=== PATIENT | female | born 1975 | race Caucasian/White ===

== ENCOUNTER 2023-05-09 09:51 | Outpatient (OUT) | payer OTHER, SELFPAY ==
--- NOTE | 2023-05-09 10:03 | MM_ITS ---
Patient: JAIME PORTILLO Exam Date: 05/09/2023 : 1975 Gender:F Ordering : DR PRISCILA PAZ M.D. Admission #: [id number] Family : Order #: [id number] CLICK HERE TO VIEW EXAM RADIOLOGY REPORT PROCEDURE: MM TOMOSYNTHESIS SCREENING BI COMPARISON: MG MAMM SCREEN 3D LUIS CAD, 03/20/2021. MG MAMM SCREEN LUIS W CAD, 03/30/2016. INDICATIONS: Screening mammogram Z12.31 Calculator Name NCI Breast Cancer Risk Assessment Tool 5 Year Breast Cancer Risk 0.90% Lifetime Breast Cancer Risk 9.30% Personal Breast Cancer No Personal Ovarian Cancer No Treatments None Family Cancers Grandmother-paternal with breast cancer at age ~63. LOCATION: [facility] BREAST COMPOSITION: Heterogeneously dense,which may obscure small masses. FINDINGS: DIAGNOSTIC CATEGORY 2--BENIGN FINDING: RIGHT BREAST: No significant suspicious finding. Stable chronic asymmetries. No significant change has occurred. LEFT BREAST: No significant suspicious finding. Stable chronic asymmetries. No significant change has occurred. RECOMMENDATIONS: ROUTINE MAMMOGRAM AND CLINICAL EVALUATION IN 12 MONTHS. PLEASE NOTE: A NORMAL MAMMOGRAM DOES NOT EXCLUDE THE POSSIBILITY OF BREAST CANCER. A CLINICALLY SUSPICIOUS PALPABLE LUMP SHOULD BE BIOPSIED. Dictated by: Yuri Pringle M.D. on 05/09/2023 at 14:16 Approved by: Yuri Pringle M.D. on 05/09/2023 at 14:20
== END 2023-05-09 09:52 | disposition home or self-care (01) ==
LOC: MAMMO 09:54
PROVIDERS: PCP Family Medicine; Visit Provider Family Medicine
DX: Z12.31 Encounter for screening mammogram for malignant neoplasm of breast (principal); Z80.3 Family history of malignant neoplasm of breast
CPT/HCPCS: 77063; 77067

== ENCOUNTER 2024-06-12 10:27 | Outpatient (OUT) | payer OTHER, SELFPAY ==
--- NOTE | 2024-06-12 | MM_ITS ---
Patient Name: JAIME PORTILLO MR#: [id number] : 1975 Exam Date: 06/12/2024 Ordering Doctor: DR PRISCILA PAZ M.D. RADIOLOGY REPORT PROCEDURE: MM SCREENING MAMMO BI COMPARISON: MM TOMOSYNTHESIS SCREENING BI, 05/09/2023. INDICATIONS: BILATERAL SCREENING MAMM Calculator Name NCI Breast Cancer Risk Assessment Tool 5 Year Breast Cancer Risk 0.90% Lifetime Breast Cancer Risk 9.20% Personal Breast Cancer No Personal Ovarian Cancer No Treatments None Family Cancers Grandmother-paternal with breast cancer at age ~63. LOCATION: [facility] BREAST COMPOSITION: The breasts are heterogeneously dense,which may obscure small masses. FINDINGS: DIAGNOSTIC CATEGORY 2--BENIGN FINDING. NO CHANGE FROM COMPARISON. Scattered benign-appearing nodules are present. Scattered benign-appearing calcifications are present. Scattered benign-appearing lymph nodes are present. RIGHT BREAST: No significant suspicious finding. LEFT BREAST: No significant suspicious finding. RECOMMENDATIONS: ROUTINE MAMMOGRAM AND CLINICAL EVALUATION IN 12 MONTHS. PLEASE NOTE: A NORMAL MAMMOGRAM DOES NOT EXCLUDE THE POSSIBILITY OF BREAST CANCER. A CLINICALLY SUSPICIOUS PALPABLE LUMP SHOULD BE BIOPSIED. Dictated by: Francisco Flanagan MD on 06/12/2024 at 12:25 Approved by: Francisco Flanagan MD on 06/12/2024 at 12:26
== END 2024-06-12 10:28 | disposition home or self-care (01) ==
LOC: MAMMO 10:29
PROVIDERS: PCP Family Medicine; Visit Provider Family Medicine
DX: Z12.31 Encounter for screening mammogram for malignant neoplasm of breast (principal); Z80.3 Family history of malignant neoplasm of breast
CPT/HCPCS: 77067

== ENCOUNTER 2025-07-16 07:57 | Outpatient (OUT) | payer OTHER, SELFPAY ==
--- OUTSIDE RECORDS SUMMARY | 2024-07-31 06:30 | XMS_ITS ---
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 Role Phone Anna Eli Primary Care Provider IngramFrancisco [phone] ALLERGIES Allergen (clinical drug ingredient) Drug/Non Drug Allergy documented on EMR Reaction Allergy Type Onset Date Status meperidine Demerol anaphylaxis Drug Allergy Acti ve acetaminophen / oxycodone Percocet hives Drug Allergy Active REASON FOR VISIT pain, sinus congestion, coughing MEDICATIONS Medication SIG (Take, Route, Fr equency, Duration) Notes Start Date End Date Status Lipitor 10 MG 1 tablet Orally Once a day one daily Active Lisinopril 5 MG 2 tablets Orally Once a day Active Amoxicillin 500 MG 1 capsule Orally ely ry 8 hrs for 10 days 07/31/2024 Active predniSONE 20 MG 2 Orally Once a day for 5 days 07/31/2024 Active SOCIAL HISTORY Tobacco Use: Social History Observation Description Date Details (start date - stop date) Never Smoker NA - NA Sex Assigned At : Social History Observation Description Sex Assigned At Unknown Tobacco Use/Smoking Question Answer Notes Are you a nonuser 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 PROBLEMS Problem Type ICD Code Onset Dates Problem Status W/U Status Risk SNOMED Code Notes Problem HTN (hypertension) (I10) Active confirmed Hypertension (78532781) Problem Hyperlipidemia (E78.5) Active confirmed Hyperlipidemia (48812768) VITAL SIGNS Heart Rate 82 /min 07/31/2024 Oximetry 98 % 07/31/2024 Blood pressure systolic 112 mm Hg 07/31/20 24 Blood pressure diastolic 76 mm Hg 024 Weight 172 lbs 07/31/2024 Height 66 in 07/31/2024 BMI 27.76 07/31/2024 Weight-kg 78.02 kg 07/31/2024 Encounters Encounter Location Date Provider Diagnosis [facility] [address] [place] [id number] 07/31/2024 Francisco Ingram Acute non-recurrent maxillary sinusitis J01.00 ASSESSMENTS Encounter Date Diagnosis Assessment Notes Treatment Notes Treatment Clinical Notes Section Notes 07/31/2024 Acute non-recurrent maxillary sinusitis (ICD-10 - J01.00) Counseled on sxs care, expected course. She will hold amoxicillin, prednisone and start them only if she is not getting better or is getting worse over the 07/31/2024 Other Discussed services at [facility]. She is considering x-ferring care here and will call to schedule wellness if she wishes to do so. PLAN OF TREATMENT Medication Medication Name Sig Start Date Stop Date Notes Amoxicillin 500 MG 1 capsule Orally ely ry 8 hrs for 10 days 07/31/2024 predniSONE 20 MG 2 Orally Once a day for 5 days 07/31/2024 Treatment Notes Assessment Notes Acute non-recurrent maxillary sinusitis Counseled on sxs care, expected course. She will hold amoxicillin, prednisone and start them only if she is not getting better or is getting worse over the WE Other Discussed services a t [facility]. She is considering x-ferring care here and will call to schedule wellness if she wishes to do so. Next Appt Details Follow Up: prn, Reason: Progress Notes * Sloane PORTILLOOB:1975 (49 yo F)Acc No.[id number]:07/31/2024 Patient: Kinsey PORTILLO Provider: Francisco Ingram MD :1975 Age:49 Y Sex:Female Date:07/31/2024 Address:[address] [place], [place] [id number] Pcp:Anna Eli Subjective: * Chief Complaints: * Pain, sinus congestion, coughing * HPI: *: Sinus congestion/pressure, occasional productive cough x 5 days. Onset c malaise, aches, teeth hurt. [place] feverish. 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 Has used Nyquil and Ibuprofen. Feels better for 4 hours c this. Can feel head pressure and ears are plugged. No other sxs. 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 Last pap smear date ? Within the last 3-4 years-Kaykay Angulo. Last mammogram date 05/2024. Abnormal pap smear around 2003 - likely ASCUS. Date of Last Period 07/23/24 very light. * OB History: Total pregnancies 2. Total living children 2. # 1: Primary . # 2: Repeat . * Surgical History: Ablation 2003 * Hospitalization/Major Diagno stic Procedure: Childbirth * Family History: Father: alive 74 yrs, diagnosed with Hyperlipidemia. Mother: alive 73 yrs, diagnosed with Hypertension, Hyperlipidemia. Paternal G F: . Paternal G M: . Maternal G F: , diagnosed with Coronary atherosclerosis. Maternal G M: . 1 brother(s) . 1 son(s) , 1 daughter(s) - healthy. . Bzuobte-B-Oid. 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 * Medications: TakingLisinopril 5 MG Tablet 2 tablets Orally Once a day Lipitor 10 MG Tablet 1 tablet Orally Once a day Medication List reviewed and reconciled with the patientTaking Lisinopril 5 MG Tablet 2 tablets Orally Once a day Taking Lipitor 10 MG Tablet 1 tablet Orally Once a day Medication List reviewed and reconciled with the patient * Allergies: Percocet: hives - AllergyDemerol: anaphylaxis - Allergyno[Allergies Verified] Objective: * Vitals: HR:82, Oxygen sat:98%, BP:112/76mm Hg, Wt:172lbs, Ht:66in, BMI:27.76, Wt-k.02 kg. * Examination: General Examination *: GENERAL APPEARANCE: alert and oriented, no acute distress, pleasant, well nourished. HEAD: atraumatic, normocephalic. EYES: extraocular movements intact, conjunctiva mildly injected. EARS: auditory canal clear, light reflex dull, tympanic membrane retracted bilaterally,. SINUSES: tender maxillary> frontal. NOSE: nares congested. ORAL CAVITY: no lesions, mucosa moist, normal dentition. THROAT: mild erythema s e xudate. NECK/THYROID: neck supple, no thyromegaly. LYMPH NODES: mild anterior cervical adenopathy. HEART: S1/S2 normal, regular rate and rhythm, no murmurs, no rubs, no gallops. LUNGS: clear to auscultation, good air movement, no respiratory distress. EXTREMITIES: no edema, capillary refill normal. Assessment: * Assessment: 1. Acute non-recurrent maxillary sinusitis - J01.00 (Primary) Plan: * Treatment: 2. Others Notes: Discussed services at [facility]. She is considering x-ferring care here and will call to schedule wellness if she wishes to do so. * Procedure Codes: * Follow Up: prn * Billing Information: * Visit Code: 90905 Level 3 New Patient Acute Care. * Procedure Codes: * Sign off status: Completed true * Provider: Francisco Ingram MD Date: 07/31/2024 History and Physical Notes * HPI (History of Present Illness) Category Sub-Category Detail Notes Category Not es * Sinus congestio n/pressure, occasional productive cough x 5 days. Onset c malaise, aches, teeth hurt. [place] feverish. 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 Has used Nyquil and Ibuprofen. Feels better for 4 hours c this. Can feel head pressure and ears are plugged. No other sxs. Examination Category Sub-Category Detail Notes Category Not es General Examination * GENERAL APPEARANCE: alert and oriented, no acute distress, pleasant, well nourished HEAD: atraumatic, normocep halic EYES: extraocular movement s intact, conjunctiva mildly injected EARS: auditory canal clear , light reflex dull, tympanic membrane retracted bilaterally, NOSE: nares congested ORAL CAVITY: no lesions, mucosa m oist, normal dentition THROAT: mild erythema s exud ate NECK/THYROID: neck supple, no thyr omegaly LYMPH NODES: mild anterior cervic al adenopathy HEART: S1/S2 normal, regula r rate and rhythm, no murmurs, no rubs, no gallops LUNGS: clear to auscultatio n, good air movement, no respiratory distress EXTREMITIES: no edema, capillary refill normal SINUSES: tender maxillary> fr ontal
--- OUTSIDE RECORDS SUMMARY | 2025-07-16 07:59 | XMS_ITS | CCD ---
Author Organization [facility] Care Team Providers Care Ell Tutor Name Role Phone DR KIMEBRLY PAZ Attending Unavailable JACKSON, DR FRANCOSI Admitting Unavailable JACKSON, DR FRANCOIS Consulting Unavailable TONY, DR YURI Cronin Consulting Unavailable JACKSON, DR FRANCOIS Admitting Unavailable JACKSON, DR FRANCOIS Consulting Unavailable JACKSON, DR FRANCOIS Attending Unavailable TONY, DR YURI Cronin Consulting Unavailable Kimberly Paz MD Primary Care Provider KELLY GOEL Attending Unavailable KELLY GOEL Attending Unavailable LESLIE SHEA Attending Unavailable KELLY GOEL Attending Unavailable Allergies Allergy Classification Reported Allergen(s) Allergy Type Date of Onset Reaction(s) Facility (20 sources) Acetaminophen / oxyCODONE Drug Allergy 04-22-2023 [facility] (20 sources) Meperidine Drug Allergy 04-22-2023 [facility] Work Phone: Medications Current Medications Medication Drug Class(es) Dates Sig (Normalized) Sig (Original) atorvastatin 10 mg oral tablet (20 sources) HMG-CoA Reductase Inhibitor Start: 12-20-2024 End: 06-17-2025 take 1 tablet by mouth in the morning atorvastatin (Lipitor) 10 MG tablet Indications: Hypercholesteremia Take 1 tablet (10 mg) by mouth in the morning. 90 tablet 1 06/17/2025 Active Start: 12-31-2023 End: 06-12-2024 take 1 tablet by mouth in the morning atorvastatin (Lipitor) 10 MG tablet Indications: Hypercholesteremia (CMS/HCC) Take 1 tablet (10 mg) by mouth in the morning. 90 tablet 1 06/12/2024 Active 12 hr buPROPion hydrochloride 90 mg / naltrexone hydrochloride 8 mg extended release oral tablet (20 sources) Opioid Antagonist, Aminoketone Start: 04-05-2025 End: 06-28-2025 take 2 tablets by mouth in the morning, then take 2 tablets by mouth at bedtime Contrave 8-90 MG ER tablet Indications: Overweight (BMI 25.0-29.9) Take 2 tablets by mouth in the morning and take 2 before bedtime 120 tablet 1 06/28/2025 Active Start: 02-09-2025 take 2 tablets by mo uth in the morning, then take 2 tablets by mouth at bedtime Contrave 8-90 MG ER tablet Indications: Overweight (BMI 25.0-29.9) Take 2 tablets by mouth in the morning and take 2 before bedtime 120 tablet 1 02/09/2025 Active Start: 07-14-2024 End: 02-09-2025 take 2 tablets by mouth in the morning naltrexone-buPROPion ER (Contrave) 8-90 MG ER tablet Indications: Overweight (BMI 25.0-29.9) Take 2 tablets by mouth in the morning and 2 tablets before bedtime. 360 tablet 1 07/14/2024 02/09/2025 Discontinued Start: 03-02-2024 End: 06-12-2024 take 2 tablets by mouth in the morning, then take 2 tablets by mouth at bedtime Contrave 8-90 MG ER tablet Indications: Mixed hyperlipidemia (CMS/HCC) , Primary hypertension (CMS/HCC) , Overweight (BMI 25.0-29.9) Take 2 tablets by mouth in the morning and take 2 before bedtime 120 tablet 03/02/2024 06/12/2024 Discontinued lisinopril 5 mg oral tablet (20 sources) Angiotensin Converting Enzyme Inhibitor Start: 12-20-2024 End: 06-17-2025 take 1 tablet by mouth in the morning lisinopril 5 MG tablet Indications: Primary hypertension Take 1 tablet (5 mg) by mouth in the morning. 90 tablet 1 06/17/2025 Active Start: 12-31-2023 End: 06-12-2024 take 1 tablet by mouth in the morning lisinopril 5 MG tablet Indications: Primary hypertension (CMS/HCC) Take 1 tablet (5 mg) by mouth in the morning. 90 tablet 1 06/12/2024 Active meloxicam 7.5 mg oral tablet (3 sources) Nonsteroidal Anti-inflammatory Drug Start: 02-25-2024 End: 02-24-2025 take 1 tablet by mouth once daily meloxicam (Mobic) 7.5 MG tablet Indications: Rib pain on right side Take 1 tablet (7.5 mg) by mouth Daily 30 tablet 02/25/2024 06/12/2024 Discontinued Naltrexone-buPRO Pion HCl (CONTRAVE PO) (2 sources) End: 07-14-2024 Naltrexone-buPROP ion HCl (CONTRAVE PO) Take by mouth 07/14/2024 Discontinued (Reorder) predniSONE 20 mg oral tablet (4 sources) Start: 06-18-2025 End: 06-23-2025 take 1 tablet by mouth in the morning predniSONE (Deltasone) 20 MG tablet Indications: Chronic midline low back pain without sciatica Take 1 tablet (20 mg) by mouth in the morning and 1 tablet (20 mg) before bedtime. Do all this for 5 days. 10 tablet 06/18/2025 06/23/2025 Active Start: 05-03-2025 End: 05-08-2025 take 1 tablet by mouth in the morning predniSONE (Deltasone) 20 MG tablet Indications: Left elbow pain Take 1 tablet (20 mg) by mouth in the morning and 1 tablet (20 mg) before bedtime. Do all this for 5 days. 10 tablet 05/03/2025 05/08/2025 Active Semaglutide-Weight Management (Wegovy) 0.25 MG/0.5ML solution auto-injector (5 sources) Start: 06-12-2024 End: 07-14-2024 inject 0.25 mg by subcutaneous injection every week Semaglutide-Weight Management (Wegovy) 0.25 MG/0.5ML solution auto-injector Indications: Primary hypertension (CMS/HCC) , Overweight (BMI 25.0-29.9) Inject 0.25 mg under the skin 1 (one) time per week 2 mL 06/12/2024 07/14/2024 Discontinued Start: 06-12-2024 End: 07-12-2024 inject 0.25 mg by subcutaneous injection every week Semaglutide-Weight Management (Wegovy) 0.25 MG/0.5ML solution auto-injector Indications: Primary hypertension (CMS/HCC) , Overweight (BMI 25.0-29.9) Inject 0.25 mg under the skin 1 (one) time per week 2 mL 06/12/2024 07/12/2024 Active Problems Active Problems Problem Classification Problem Date Documented Da te Episodic/Chronic Anxiety disorders (20 sources) Anxiety; Translations: [Anxiety disorder, unspecified] Onset: 05-09-2023 05-09-2023 Chronic Disorders of lipid metabolism (20 sources) Hypercholesterolemi a; Translations: [Pure hypercholesterolemi a, unspecified] Onset: 05-09-2023 05-09-2023 Chronic Essential hypertension (20 sources) Essential hypertension; Translations: [Essential (primary) hypertension] Onset: 11-06-2024 07-14-2024 Chronic Other non-traumatic joint disorders (2 sources) Pain in elbow; Translations: [Pain in left elbow] 05-03-2025 Episodic Other nutritional; endocrine; and metabolic disorders (8 sources) Body mass index 25-29 - overweight; Translations: [Overweight] 07-14-2024 Episodic Other skin disorders (2 sources) Sebaceous cyst of skin; Translations: [Sebaceous cyst] 05-03-2025 Episodic Spondylosis; intervertebral disc disorders; other back problems (20 sources) Bilateral inflammation of sacroiliac joint; Translations: [Sacroiliitis, not elsewhere classified] Onset: 05-09-2023 05-09-2023 Chronic Spondylosis; intervertebral disc disorders; other back problems (2 sources) Chronic low back pain; Translations: [Chronic midline low back pain without sciatica] 06-18-2025 Episodic Unclassified (2 sources) Sebaceous cyst of skin 05-03-2025 Past or Other Problems Problem Classification Problem Date Documented Da te Episodic/Chronic Adjustment disorders (20 sources) Adjustment disorder with mixed anxiety and depressed mood; Translations: [Adjustment disorder with mixed anxiety and depressed mood] Onset: 05-09-2023 Resolved: 05-14-2023 05-14-2023 Chronic Malaise and fatigue (20 sources) Fatigue; Translations: [Other fatigue] Onset: 05-09-2023 05-09-2023 Episodic Mood disorders (20 sources) Acute depression; Translations: [Acute depression] Onset: 05-09-2023 Resolved: 05-14-2023 05-14-2023 Chronic Other inflammatory condition of skin (20 sources) Perioral dermatitis; Translations: [Perioral dermatitis] Onset: 05-09-2023 Resolved: 06-12-2024 06-12-2024 Chronic Other inflammatory condition of skin (20 sources) Rosacea; Translations: [Rosacea, unspecified] Onset: 05-09-2023 Resolved: 06-12-2024 06-12-2024 Chronic Other nutritional; endocrine; and metabolic disorders (18 sources) Weight increased; Translations: [Abnormal weight gain] Onset: 05-09-2023 05-09-2023 Episodic Other nutritional; endocrine; and metabolic disorders (4 sources) Weight gain; Translations: [Abnormal weight gain] Onset: 05-09-2023 05-09-2023 Episodic Other screening for suspected conditions (not mental disorders or infectious disease) (20 sources) Other abnormal and inconclusive findings on diagnostic imaging of breast; Translations: [Mammography abnormal] Onset: 05-16-2022 Resolved: 05-14-2023 Episodic Results Test Name Value Interpretation Reference Range [facility] - Chemistry and C hemistry - challengeon 05-04-2025 Albumin [Mass/Vol] 4.7 g/dL 3.6 - 5.1 g/dL [facility] Albumin/Globulin [Mass ratio] 2.1 {ratio} [facility] ALP [Catalytic activity/Vol] 44 U/L 37 - 153 U/L [facility] ALT [Catalytic activity/Vol] 17 U/L 6 - 29 U/L [facility] AST [Catalytic activity/Vol] 17 U/L 10 - 35 U/L [facility] Bilirubin [Mass/Vol] 0.6 mg/dL 0.2 - 1.2 mg/dL [facility] Calcium [Mass/Vol] 9.5 mg/dL 8.6 - 10. 4 mg/dL [facility] Chloride [Moles/Vol] 101 mmol/L 98 - 110 mmol/L [facility] CO2 [Moles/Vol] 29 mmol/L 20 - 32 mmol/L [facility] Creatinine [Mass/Vol] 0.98 mg/dL 0.50 - 1.03 mg/dL [facility] GFR/1.73 sq M.predicted among non-blacks MDRD (S/P/Bld) [Vol rate/Area] 70 mL/min/{1.73_m2} > OR = 60 mL/min/1.73m2 [facility] Globulin (S) [Mass/Vol] 2.2 g/dL [facility] Glucose [Mass/Vol] 101 mg/dL High 65 - 99 mg/dL [facility] Comment on above: Fasting reference interval For someone without known diabetes, a glucose value between 100 and 125 mg/dL is consistent with prediabetes and should be confirmed with a follow-up test. Potassium [Moles/Vol] 4.4 mmol/L 3.5 - 5.3 mmol/L [facility] Protein [Mass/Vol] 6.9 g/dL 6.1 - 8.1 g/dL [facility] Sodium [Moles/Vol] 138 mmol/L 135 - 146 mmol/L [facility] Urea nitrogen [Mass/Vol] 13 mg/dL 7 - 25 mg/dL [facility] Urea nitrogen/Creatinine [Mass ratio] SEE NOTE: [facility] Comment on above: Not Reported: BUN an d Creatinine are within reference range. Lipid 1996 panel 5 Cholesterol [Mass/Vol] 198 mg/dL [facility] - 200 mg/dL [facility] Cholesterol in HDL [Mass/Vol] 78 mg/dL > OR = 50 [facility] Cholesterol in LDL [Mass/Vol] 104 mg/dL High mg/dL (calc) [facility] Comment on above: Reference range: <10 0 Desirable range <100 mg/dL for primary prevention; <70 mg/dL for patients with CHD or diabetic patients with > or = 2 CHD risk factors. LDL-C is now calculated using the Ángel-Alan calculation, which is a validated novel method providing better accuracy than the Friedewald equation in the estimation of LDL-C. Ángel PRADO et al. GUICHO. 2013;310(19): 6226-4744 (http://education.Euphoria App.Si TV/faq/ZIA001) Cholesterol non HDL [Mass/Vol] 120 mg/dL [facility] Comment on above: For patients with di abetes plus 1 major ASCVD risk factor, treating to a non-HDL-C goal of <100 mg/dL (LDL-C of <70 mg/dL) is considered a therapeutic option. Cholesterol.total/Ch olesterol in HDL [Mass ratio] 2.5 {ratio} [facility] Triglyceride [Mass/Vol] 71 mg/dL [facility] - 150 mg/dL [facility] [email or web address] No Panel Informationon 05-04 Interpretation and review of laboratory results Abnormal [facility] Performing Organization Information Site ID: QPT Name: [employer] [facility] Address: Ernestine Stevenson , [address] [place] [id number] Director: Stevie Melchor MD [facility] [email or web address] [facility] Spine Lumbar Complete w/F salvador AND [place] 10-10-2022 XR Spine Lumbar Complete w/Flex AND Ext FINDINGS: There are 5 lumbar vertebral bodies. There is no fracture or dislocation. There is no spondylolysis or spondylosis. There is mild disc narrowing at L5-S1. There is also mild spondylosis throughout. The visualized pelvis including the symmetric SI joints and intact sacral alar lines is unremarkable. There is a moderate amount of stool in the colon. IMPRESSION: 1. Mild spondylosis throughout the lumbar spine. 2. Mild disc narrowing at L5-S1. 3. Mild to moderate stool in the colon. Report reported and signed by Fam Prasad on 10/10/2022 1101 Normal [facility] [employer] US BREAST RIGHT LIMITEDon US BREAST RIGHT LIMITED Patient: KINSEY PORTILLO Exam Date: 05/16/2022 : 1975 Gender:F Ordering : DR KIMBERLY PAZ M.D. Admission #: [id number] Family : Order #: [id number] CLICK HERE TO VIEW EXAM RADIOLOGY REPORT PROCEDURE: ULTRASOUND BREAST RIGHT LIMITED COMPARISON: US BREAST RIGHT LIMITED, 04/03/2021. US BREAST RIGHT LIMITED, 10/25/2021. INDICATIONS: Abnormal findings on diagnostic imaging of breast TECHNIQUE: Breast ultrasound was performed, with evaluation focusing only on specific areas of concern. FINDINGS: DIAGNOSTIC CATEGORY 2--BENIGN FINDING: RIGHT BREAST: Stable 3 mm hypodense cyst versus nodule at the 9 o'clock position, 2.7 cm from the nipple. No appreciable change compared to prior 2 studies. Annual screening mammography is recommended. RECOMMENDATIONS: ROUTINE MAMMOGRAM AND CLINICAL EVALUATION IN 12 MONTHS. PLEASE NOTE: A NORMAL ULTRASOUND EXAMINATION DOES NOT EXCLUDE THE POSSIBILITY OF BREAST CANCER. A CLINICALLY SUSPICIOUS PALPABLE LUMP SHOULD BE BIOPSIED. Dictated by: Yuri Pringle M.D. on 05/16/2022 at 14:38 Approved by: Yuri Pringle M.D. on 05/16/2022 at 14:47 Normal [facility] US BREAST RIGHT LIMITEDon US BREAST RIGHT LIMITED Patient: KINSEY PORTILLO Exam Date: 10/25/2021 : 1975 Gender:F Ordering : DR KIMBERLY PAZ M.D. Admission #: [id number] Family : Order #: [id number] CLICK HERE TO VIEW EXAM RADIOLOGY REPORT PROCEDURE: ULTRASOUND BREAST RIGHT LIMITED COMPARISON: US BREAST RIGHT LIMITED, 04/03/2021. INDICATIONS: Abnormal findings on diagnostic imaging of breast TECHNIQUE: Breast ultrasound was performed, with evaluation focusing only on specific areas of concern. FINDINGS: DIAGNOSTIC CATEGORY 3--PROBABLY BENIGN FINDING. THE FOLLOWING FINDING(S) HAS A HIGH PROBABILITY OF A BENIGN ETIOLOGY: RIGHT BREAST: Stable oval 4 x 3 x 3 mm smoothly circumscribed nodule at the 9 o'clock position, 2.7 cm from the nipple. No overtly suspicious characteristics. Follow-up imaging in 6 months is recommended to document stability over a 1 year period. RECOMMENDATIONS: DIAGNOSTIC FOLLOW-UP MAMMOGRAM BILATERAL BREASTS IN 12 MONTHS. SHORT TERM FOLLOW-UP ULTRASOUND RIGHT BREAST IN 6 MONTHS. PLEASE NOTE: A NORMAL ULTRASOUND EXAMINATION DOES NOT EXCLUDE THE POSSIBILITY OF BREAST CANCER. A CLINICALLY SUSPICIOUS PALPABLE LUMP SHOULD BE BIOPSIED. Dictated by: Yuri Pringle M.D. on 10/25/2021 at 09:40 Approved by: Yuri Pringle M.D. on 10/25/2021 at 09:44 Normal [facility] Vital Signs Date Time Vital Sign Value Performing Clinician Faci lity 06-18-2025 08:140400 Body mass index (BMI) [Ratio] 27.86 kg/m2 Leslieflorentino Downshart CREDIT CONTROL ASSISTANT Work Phone: [facility] 06-18-2025 08:[id number] Body temperature 97.5 [degF] Leslieflorentino Downshart CREDIT CONTROL ASSISTANT Work Phone: [facility] 06-18-2025 08:140400 Body weight 77.11 kg Leslie Swinehart CREDIT CONTROL ASSISTANT Work Phone: [facility] 06-18-2025 08:14-0400 Diastolic blood pressure 90 mm[Hg] Leslie Gutierrezt CREDIT CONTROL ASSISTANT Work Phone: [facility] 06-18-2025 08:14-0400 Heart rate 66 /min Leslie Shea CREDIT CONTROL ASSISTANT Work Phone: [facility] 06-18-2025 08:14-0400 SaO2% (BldA) [Mass fraction] 98 % Leslie Shea CREDIT CONTROL ASSISTANT Work Phone: [facility] 06-18-2025 08:14-0400 Systolic blood pressure 138 mm[Hg] Leslie Gutierrezt CREDIT CONTROL ASSISTANT Work Phone: [facility] 05-03-2025 10:55-0400 Body mass index (BMI) [Ratio] 27.04 kg/m2 Kelly Goel CREDIT CONTROL ASSISTANT Work Phone: [facility] 05-03-2025 10:55-0400 Body weight 74.84 kg Kelly Goel CREDIT CONTROL ASSISTANT Work Phone: [facility] 05-03-2025 10:55-0400 Diastolic blood pressure 90 mm[Hg] Kelly Goel CREDIT CONTROL ASSISTANT Work Phone: [facility] 05-03-2025 10:55-0400 Heart rate 67 /min Kelly Goel CREDIT CONTROL ASSISTANT Work Phone: [facility] 05-03-2025 10:55-0400 SaO2% (BldA) [Mass fraction] 98 % Kelly Goel CREDIT CONTROL ASSISTANT Work Phone: [facility] 05-03-2025 10:55-0400 Systolic blood pressure 138 mm[Hg] Kelly Goel CREDIT CONTROL ASSISTANT Work Phone: [facility] 11-06-2024 13:59-0500 Body height 166.4 cm Kelly Geol CREDIT CONTROL ASSISTANT Work Phone: [facility] 11-06-2024 13:59-0500 Body mass index (BMI) [Ratio] 27.99 kg/m2 Kelly Goel CREDIT CONTROL ASSISTANT Work Phone: [facility] 11-06-2024 13:59-0500 Body temperature 99.5 [degF] Kelly Goel CREDIT CONTROL ASSISTANT Work Phone: [facility] 11-06-2024 13:59-0500 Body weight 77.47 kg Kelly Goel CREDIT CONTROL ASSISTANT Work Phone: [facility] 11-06-2024 13:59-0500 Diastolic blood pressure 78 mm[Hg] Kelly Goel CREDIT CONTROL ASSISTANT Work Phone: [facility] 11-06-2024 13:59-0500 Heart rate 83 /min Kelly Goel CREDIT CONTROL ASSISTANT Work Phone: [facility] 11-06-2024 13:59-0500 SaO2% (BldA) [Mass fraction] 98 % Kelly Goel CREDIT CONTROL ASSISTANT Work Phone: [facility] 11-06-2024 13:59-0500 Systolic blood pressure 120 mm[Hg] Kelly Goel CREDIT CONTROL ASSISTANT Work Phone: [facility] 07-14-2024 11:59-0400 Body height 166.4 cm Kelly Goel CREDIT CONTROL ASSISTANT Work Phone: [facility] 07-14-2024 11:59-0400 Body mass index (BMI) [Ratio] 28.25 kg/m2 Kelly Goel CREDIT CONTROL ASSISTANT Work Phone: [facility] 07-14-2024 11:59-0400 Body weight 78.2 kg Kelly Goel CREDIT CONTROL ASSISTANT Work Phone: [facility] 07-14-2024 11:59-0400 Diastolic blood pressure 80 mm[Hg] Kelly Goel CREDIT CONTROL ASSISTANT Work Phone: [facility] 07-14-2024 11:59-0400 Heart rate 73 /min Kelly Goel CREDIT CONTROL ASSISTANT Work Phone: [facility] 07-14-2024 11:59-0400 SaO2% (BldA) [Mass fraction] 96 % Kelly Goel CREDIT CONTROL ASSISTANT Work Phone: [facility] 07-14-2024 11:59-0400 Systolic blood pressure 130 mm[Hg] Kelly Goel CREDIT CONTROL ASSISTANT Work Phone: [facility] 06-12-2024 08:33-0400 Body height 166.4 cm Kelly Goel CREDIT CONTROL ASSISTANT Work Phone: [facility] 06-12-2024 08:33-0400 Body mass index (BMI) [Ratio] 28.91 kg/m2 Kelly Goel CREDIT CONTROL ASSISTANT Work Phone: [facility] 06-12-2024 08:33-0400 Body weight 80.02 kg Kelly Goel CREDIT CONTROL ASSISTANT Work Phone: [facility] 06-12-2024 08:33-0400 Diastolic blood pressure 70 mm[Hg] Kelly Goel CREDIT CONTROL ASSISTANT Work Phone: [facility] 06-12-2024 08:33-0400 Heart rate 74 /min Kelly Goel CREDIT CONTROL ASSISTANT Work Phone: [facility] 06-12-2024 08:33-0400 SaO2% (BldA) [Mass fraction] 97 % Kelly Goel CREDIT CONTROL ASSISTANT Work Phone: [facility] 06-12-2024 08:33-0400 Systolic blood pressure 124 mm[Hg] Kelly Goel CREDIT CONTROL ASSISTANT Work Phone: [facility] Healthcare Encounters Encounter Date Encounter Type Care Provider Facility Start: 06-28-2025 End: 06-28-2025 Refill Kelly Goel CREDIT CONTROL ASSISTANT Work Phone: [facility] Comment on above: Overweight (BMI 25.0 -29.9) Start: 06-18-2025 End: 06-18-2025 Bamboo flowsheet Leslie Swinehart CREDIT CONTROL ASSISTANT Work Phone: [facility] Start: 06-18-2025 End: 06-18-2025 Bamboo flowsheet Leslie Swinehart CREDIT CONTROL ASSISTANT Work Phone: [facility] Start: 06-18-2025 End: 06-18-2025 Office outpatient visit 10 minutes Leslie Gutierrezt CREDIT CONTROL ASSISTANT Work Phone: [facility] Comment on above: Chronic midline low back pain without sciatica (Primary Dx) Start: 06-18-2025 End: 06-18-2025 ambulatory LESLIE SHEA Not Available Start: 06-17-2025 End: 06-17-2025 Refill Donya Vargas MA [facility] Comment on above: Hypercholesteremia ; Primary hypertension Start: 06-15-2025 End: 06-15-2025 Telephone encounter Kimberly Paz MD Work Phone: [facility] Start: 05-03-2025 End: 05-03-2025 Bamboo flowsheet Kelly Goel CREDIT CONTROL ASSISTANT Work Phone: [facility] Start: 05-03-2025 End: 05-03-2025 Bamboo flowsheet Kelly Goel CREDIT CONTROL ASSISTANT Work Phone: [facility] Start: 05-03-2025 End: 05-03-2025 Patient encounter status Kelly Goel NP Work Phone: [facility] Healthcare Start: 05-03-2025 End: 05-03-2025 Periodic preventive med est patient 40-64yrs Kelly Goel CREDIT CONTROL ASSISTANT Work Phone: [facility] Comment on above: Encounter for [facility] ss examination (Primary Dx); Primary hypertension ; Hypercholesteremia ; Anxiety; Screening mammogram for breast cancer; Left elbow pain; Sebaceous cyst Start: 05-03-2025 End: 05-03-2025 ambulatory KELLY GOEL Not Available Start: 04-22-2025 End: 04-22-2025 Follow-up encounter Kimberly Paz MD Work Phone: [facility] Start: 03-30-2025 End: 04-12-2025 Telephone encounter Kimberly Paz MD Work Phone: [facility] Start: 02-09-2025 End: 02-09-2025 Refill Kelly Goel CREDIT CONTROL ASSISTANT Work Phone: [facility] Comment on above: Overweight (BMI 25.0 -29.9) Start: 11-06-2024 End: 11-06-2024 Bamboo flowsheet Kelly Goel CREDIT CONTROL ASSISTANT Work Phone: [facility] Start: 11-06-2024 End: 11-06-2024 Bamboo flowsheet Kelly Goel CREDIT CONTROL ASSISTANT Work Phone: [facility] Start: 11-06-2024 End: 11-06-2024 Office outpatient visit 25 minutes Kelly Goel CREDIT CONTROL ASSISTANT Work Phone: [facility] Comment on above: Fatigue, unspecified type (Primary Dx); Overweight (BMI 25.0-29.9); Primary hypertension (CMS/HCC) Start: 11-06-2024 End: 11-06-2024 ambulatory KELLY GOEL Not Available Start: 07-14-2024 End: 07-14-2024 Bamboo flowsheet Kelly Goel CREDIT CONTROL ASSISTANT Work Phone: [facility] Start: 07-14-2024 End: 07-14-2024 Bamboo flowsheet Kelly Goel CREDIT CONTROL ASSISTANT Work Phone: [facility] Start: 07-14-2024 End: 07-14-2024 Office outpatient visit 25 minutes Kelly Goel CREDIT CONTROL ASSISTANT Work Phone: [facility] Comment on above: Overweight (BMI 25.0 -29.9) (Primary Dx); Primary hypertension (CMS/HCC) Start: 07-14-2024 End: 07-14-2024 ambulatory KELLY ARAGONPJA Not Available Start: 06-12-2024 End: 06-12-2024 Bamboo flowsheet Kelly Goel CREDIT CONTROL ASSISTANT Work Phone: [facility] Start: 06-12-2024 End: 06-12-2024 Bamboo flowsheet Kelly Goel CREDIT CONTROL ASSISTANT Work Phone: [facility] Start: 06-12-2024 End: 06-12-2024 Telephone encounter Kimberly Paz MD Work Phone: [facility] Start: 06-12-2024 End: 06-12-2024 Patient encounter status Kelly Aragondanny CREDIT CONTROL ASSISTANT Work Phone: [facility] Healthcare Work Phone: Start: 06-12-2024 End: 06-12-2024 Periodic preventive med est patient 40-64yrs Kelly Aragondanny CREDIT CONTROL ASSISTANT [facility] Comment on above: Encounter for [facility] ss examination (Primary Dx); Primary hypertension (CMS/HCC); Overweight (BMI 25.0-29.9); Hypercholesteremia (CMS/HCC) Start: 05-16-2022 End: 05-17-[address] KIMBERLY PAZ Facility:[facility] Start: 10-25-2021 End: 10-26-[address] KIMBERLY PAZ Facility:[facility] Procedures Date Procedure Procedure Detail Performing Clinician Start: 05-03-2025 Comprehensive metabo lic panel Kellymikal Goel CREDIT CONTROL ASSISTANT Work Phone: Start: 05-03-2025 Lipid panel Kelly Aragonliz rosa CREDIT CONTROL ASSISTANT Work Phone: Start: 06-12-2024 Mammography Kelly Aragonliz rosa CREDIT CONTROL ASSISTANT Work Phone: Start: 05-09-2023 Mammography Kelly Aragonliz rosa CREDIT CONTROL ASSISTANT Work Phone: Plan of Treatment Date Care Activity Detail Author Start: 04-14-2028 Screening for malign ant neoplasm of colon [facility] Start: 03-29-2026 Influenza vaccination Influenza Vacc ine (#1) [facility] Comment on above: Postponed from 05/31 (Patient Refused) Start: 01-17-2026 Screening for malign ant neoplasm of cervix [facility] Start: 06-18-2025 End: 06-18-2025 Patient encounter procedure [facility] Comment on above: Arrived Start: 06-12-2025 Screening for malign ant neoplasm of breast Mammogram [facility] Start: 05-31-2025 Influenza vaccination [facility] Start: 05-03-2025 End: 07-03-2026 DBT Breast - bilateral screening Bilateral screening mammogram with tomosynthesis Imaging Routine Encounter for wellness examination Screening mammogram for breast cancer Expected: 05/03/2025, Expires: 07/03/2026 [facility] Work Phone: Comment on above: Expected: 05/03/2025 , Expires: 07/03/2026 Start: 05-03-2025 End: 05-03-2025 Patient encounter procedure [facility] Comment on above: Arrived Start: 03-30-2025 End: 03-30-2026 Noninvasive colorectal cancer DNA and occult blood screening [Presence] in Stool Cologuard colon cancer screening Lab Routine Encounter for screening for malignant neoplasm of colon Expected: 03/30/2025 (Approximate), Expires: 03/30/2026 [facility] Work Phone: Comment on above: Expected: 03/30/2025 (Approximate), Expires: 03/30/2026 Start: 11-06-2024 End: 11-06-2025 25-hydroxyvitamin D3 [Mass/volume] in Serum or Plasma Vitamin D 25 hydroxy Lab Routine Fatigue, unspecified type Expected: 11/06/2024 (Approximate), Expires: 11/06/2025 [facility] Comment on above: Expected: 11/06/2024 (Approximate), Expires: 11/06/2025 Start: 11-06-2024 End: 11-06-2025 Cobalamin (Vitamin B12) [Mass/volume] in Serum or Plasma Vitamin B12 Lab Routine Fatigue, unspecified type Expected: 11/06/2024 (Approximate), Expires: 11/06/2025 [facility] Work Phone: Comment on above: Expected: 11/06/2024 (Approximate), Expires: 11/06/2025 Start: 11-06-2024 End: 11-06-2025 Ferritin [Mass/volume] in Serum or Plasma Ferritin Lab Routine Fatigue, unspecified type Expected: 11/06/2024 (Approximate), Expires: 11/06/2025 [facility] Comment on above: Expected: 11/06/2024 (Approximate), Expires: 11/06/2025 Start: 11-06-2024 End: 11-06-2025 Iron + transferrin + TIBC Iron + transferrin + TIBC Lab Routine Fatigue, unspecified type Expected: 11/06/2024 (Approximate), Expires: 11/06/2025 [facility] Comment on above: Expected: 11/06/2024 (Approximate), Expires: 11/06/2025 Start: 11-06-2024 End: 11-06-2024 Patient encounter procedure 11/06/2024 2:00 PM EST Office Visit [facility] [address] [place] [address] [place] [phone] Kelly Goel, CREDIT CONTROL ASSISTANT [address] [place] [facility] [place] [address] Arrived [facility] Comment on above: Arrived Start: 11-06-2024 End: 11-06-2025 TSH W/REFLEX TO FT4 TSH W/REFLEX TO FT4 Lab Routine Fatigue, unspecified type Expected: 11/06/2024 (Approximate), Expires: 11/06/2025 [facility] Comment on above: Expected: 11/06/2024 (Approximate), Expires: 11/06/2025 Start: 08-07-2024 Influenza vaccination Influenza Vacc ine (#1) [facility] Comment on above: Postponed from 05/31 (Patient Refused) Start: 07-14-2024 End: 07-14-2024 Patient encounter procedure 07/14/2024 12:00 PM EDT Office Visit [facility] [address] [place] [address] [place] [phone] Kelly Goel, CREDIT CONTROL ASSISTANT [address] [place] [facility] [place] [address] Arrived [facility] Comment on above: Arrived Start: 07-07-2024 End: 07-07-2024 Patient encounter procedure 07/07/2024 3:30 PM EDT Office Visit [facility] [address] [place] [phone] Kelly Goel, CREDIT CONTROL ASSISTANT [address] [facility] [place] [address] [facility] Start: 06-12-2024 End: 06-12-2025 Comprehensive metabolic 2000 panel - Serum or Plasma Comprehensive metabolic panel Lab Routine Encounter for wellness examination Primary hypertension (CMS/HCC) Expected: 06/12/2024 (Approximate), Expires: 06/12/2025 [facility] Work Phone: Comment on above: Expected: 06/12/2024 (Approximate), Expires: 06/12/2025 Start: 06-12-2024 End: 06-12-2025 TSH W/REFLEX TO FT4 TSH W/REFLEX TO FT4 Lab Routine Encounter for wellness examination Overweight (BMI 25.0-29.9) Expected: 06/12/2024 (Approximate), Expires: 06/12/2025 [facility] Comment on above: Expected: 06/12/2024 (Approximate), Expires: 06/12/2025 Start: 06-12-2024 End: 06-12-2024 Patient encounter procedure 06/12/2024 8:30 AM EDT Office Visit [facility] [address] [place] [phone] Kelly Goel NP [address] [place], [place] [id number] Arrived [facility] Comment on above: Arrived Start: 05-31-2024 Influenza vaccination Influenza Vacc ine (#1) [facility] Start: 05-09-2024 Screening for malign ant neoplasm of breast Mammogram [facility] Start: 1996 Screening for malign ant neoplasm of cervix Pap Smear [facility] Start: 1975 Screening for malign ant neoplasm of colon [facility] Immunizations Immunization Date Immunization Notes Care Provider Fa cility 02-02-2013 tetanus toxoid, redu eron diphtheria toxoid, and acellular pertussis vaccine, adsorbed Kelly Goel CREDIT CONTROL ASSISTANT Work Phone: [facility] 08-09-2010 influenza virus vacc ine, live, attenuated, for intranasal use Kelly Goel CREDIT CONTROL ASSISTANT Work Phone: [facility] 08-09-2010 influenza virus vacc ine, unspecified formulation Kelly Goel CREDIT CONTROL ASSISTANT Work Phone: [facility] Payers Date Payer Category Payer Private Health Insurance [id number] 2023 Unknown FRONTPATH FRONTP ATH [id number] 2023-Present [phone] [address] [place] [address] [id number] 1975 Unknown [id number] 1975 Unknown [id number] 1975 Unknown [id number] 1975 Unknown [id number] 1975 Unknown [id number] 1975 Unknown [id number] 1959 Unknown [id number] Social History Date Type Detail Facility Start: 05-14-2023 Tobacco smoking status MSIS Never sm oked tobacco [facility] Start: 05-14-2023 Tobacco use and exposure Smoke less tobacco non-user [facility] Start: 07-14-2024 End: 06-18-2025 Alcoholic beverage intake Current drinker of alcohol (finding) [facility] Start: 08-28-2023 End: 05-02-2025 History of Social function [facility] Start: 08-28-2023 End: 05-02-2025 Humiliation, Afraid, Rape, and Kick questionnaire [HARK] [facility] Within the last year , have you been afraid of your partner or ex-partner? No [facility] Do you belong to any clubs or organizations such as jainism groups, unions, fraternal or athletic groups, or school groups? Yes [facility] Are you now , , , , never or living with a partner? Living with partner [facility] How often to you hav e a drink containing alcohol? 2-3 time sa week [facility] How many standard dr inks containing alcohol do you have on a typical day? 1 or 2 [facility] How often do you hav e 6 or more drinks on 1 occasion? Never [facility] How hard is it for y ou to pay for the very basics like food, housing, medical care, and heating Not hard at all [facility] Do you feel stress - tense, restless, nervous, or anxious, or unable to sleep at night because your mind is troubled all the time - these days [OSQ] Only a little [facility] (I/We) worried nahomi er (my/our) food would run out before (I/we) got money to buy more. Never true [facility] Start: 08-28-2023 Alcohol Comment Caffeine intak e : 1-2 cups/day coffee [facility] Start: 1975 Sex assigned at Not on file [facility] Start: 12-12-2022 Gender identity Identifies as female gender (finding) [facility] Start: 02-25-2024 Alcoholic beverage intake Ex-drinker (finding) [facility] How often to you hav e a drink containing alcohol? 2-4 times a month [facility] How often do you hav e 6 or more drinks on 1 occasion? Less than monthly [facility] Are you now , , , , never or living with a partner? [facility] Do you feel stress - tense, restless, nervous, or anxious, or unable to sleep at night because your mind is troubled all the time - these days [OSQ] To some extent [facility] Functional Status Date Assessment Result Facility 05-03-2025 Patient Health [facility] ionnaire 2 item (PHQ-2) [Reported] [facility] Clinical Notes 06-12-2024 to 06-18-2025 Leslie Shea NP - 06/18/2025 8:00 AM EDTTelephone Encounter - Kimberly Paz MD - 06/17/2025 9:37 PM EDTTelephone Encounter - Kimberly Paz MD - 06/17/2025 9:37 PM EDT Note Date & Type Note Facility 06-18-2025 History of Presen t illness Narrative Subjective ?Quick Links Last Note in Specialty Snapshot Edit RFV/CC Edit Screenings Current Meds Patient ID: Kinsey Burton is a 50 y.o. female who presents for Back Pain. HPI History of Present Illness The patient presents for back pain. 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 She has a history of back issues but has not experienced an episode in some time. She is allergic to all pain medications, so she does not take any. She takes ibuprofen. She finds prednisone effective for her back pain, while Flexeril only induces sleepiness without providing relief. She reports no sciatica or bowel and bladder issues. 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 She has a history of severe harden splints, blas to stress fractures, from her track running days. She continued to run despite the pain and used various medications for about 2 years, which she believes led to stomach lining damage. FAMILY HISTORY Her mother has a history of severe back problems. ALLERGIES The patient is allergic to all PAIN MEDICINES. MEDICATIONS Current: Ibuprofen, prednisone. Past: Flexeril. ?Quick Review Review Full History Edit History Meds - atorvastatin (Lipitor) 10 MG tablet Contrave 8-90 MG ER tablet lisinopril 5 MG tablet --- PMH - Anemia Anxiety History of abnormal cervical Pap smear Iron deficiency anemia Objective ?Quick Links Add Vitals Timeline (Adult) Labs Imaging Results Review Trend Vitals ?? Avoid pulling in long tables of results. Comment on relevant results to support your medical decision making. There were no vitals taken for this visit. Physical Exam Physical Exam Back was examined. ?Quick Links Full Problem List Cardiology Hypertension Assessment & Plan Chronic midline low back pain without sciatica Orders: predniSONE (Deltasone) 20 MG tablet; Take 1 tablet (20 mg) by mouth in the morning and 1 tablet (20 mg) before bedtime. Do all this for 5 days. Assessment & Plan 1. Back pain. The patient's back pain is likely due to an inflammatory process, possibly stenosis or arthritis. A prescription for prednisone 5-day course will be provided. She is advised to avoid concurrent use of ibuprofen with prednisone. Conservative management includes rest as needed with encouragement of gentle activity and stretching, avoiding prolonged bed rest; use of heat or ice as needed; and acetaminophen for discomfort following dosing instructions. Continue regular activity as tolerated. Imaging is not indicated unless red flag symptoms arise or there is no improvement after 4-6 weeks. Referral is recommended if symptoms do not improve. Warning signs reviewed include progressive weakness, numbness, tingling, loss of bowel or bladder control, saddle anesthesia, fever, unexplained weight loss, or severe worsening pain. The patient verbalized understanding and agreed with the plan. If the initial 5-day course of prednisone does not alleviate her symptoms, she can request a refill via [facility] message for up to 10 days. documented in this encounter [facility] 06-17-2025 Telephone encount er Note Refills sent. [facility] 06-17-2025 Miscellaneous Notes Formattin g of this note might be different from the original. Refills sent. Patient is taking her Lisinopril daily despite the notification we got from insurance. She needs refills sent to [facility]. documented in this encounter [facility] 06-17-2025 Telephone encount er Note Patient is taking her Lisinopril daily despite the notification we got from insurance. She needs refills sent to [facility]. [facility] 06-15-2025 Telephone encount er Note predniSONE (Deltasone) 20 MG tablet [facility] 06-15-2025 Miscellaneous Notes Formattin g of this note might be different from the original. predniSONE (Deltasone) 20 MG tablet documented in this encounter [facility] 05-03-2025 History of Presen t illness Narrative Associated Problem(s): Hypertension Orders: Lipid panel; Future Comprehensive metabolic panel; Future Discussed current management plan. Goal BP less then 130/80. Discussed heart healthy diet, increase fruits and vegetables, limit salt intake. Encouraged increase physical exercise, try to be as active as possible at least 150 mins per week. Importance of weight management with a goal BMI less then 27 discussed. Discussed complications of uncontrolled blood pressure. Patient instructed to monitor BP's 1-2 times a week, keep a log, and bring to next visit. Barriers to care and medication compliance discussed. Patient voices understanding of meds. Associated Problem(s): Hypercholesteremia Orders: Lipid panel; Future -on a statin Images from the original note were not included. Subjective Patient ID: Kinsey Burton is a 50 y.o. female who presents for Annual Exam. HPI History of Present Illness The patient presents for a wellness visit and evaluation of elbow pain and a sebaceous cyst. She has been experiencing elbow pain for the past 2 to 3 weeks, which she attributes to her sleeping position. Despite efforts to change her sleep posture, the pain persists. She reports no repetitive strain or overuse of the elbow. She has a history of athletic activity, including track running in college, and is aware of her predisposition to joint issues. She recalls a severe knee injury at the start of the summer, which was alleviated by prednisone. She also uses prednisone for back pain but does not take any other pain medications due to concerns about potential allergies. She has been engaging in regular walking exercises with her stepdaughter and has been taking glucosamine supplements, which have helped with hip pain but not her elbow discomfort. She has a lump on her back that was picked at by her daughter, resulting in some discharge. She does not monitor her blood pressure at home, even though she has a blood pressure cuff. She consumed 36 ounces of coffee prior to this visit and is curious about its potential impact on her blood pressure. She reports no chest pain or shortness of breath. Her bowel movements have improved since her last visit. She underwent a Cologuard test, which returned negative results. She is due for a mammogram in 05/2025. She visits an eye doctor annually and a dentist twice a year. She has lost another 5 pounds and is down to 11 pounds in a year. She is on Contrave. Hobbies: Walking Coffee/Tea/Caffeine-containing Drinks: She drinks 36 ounces of coffee daily. Patient is aware it is too early for her wellness and insurance may not cover her visit. Option provided to reschedule, she prefers to continue with todays visit. Objective BP 138/90 (BP Location: Left arm, Patient Position: Sitting, BP Cuff Size: Small adult) Pulse 67 Wt 165 lb SpO2 98% BMI 27.04 kg/m Physical Exam Vitals reviewed. Constitutional: Appearance: Normal appearance. HENT: Head: Normocephalic and atraumatic. Right Ear: Tympanic membrane normal. Left Ear: Tympanic membrane normal. Nose: Nose normal. Mouth/Throat: Mouth: Mucous membranes are moist. Eyes: Extraocular Movements: Extraocular movements intact. Pupils: Pupils are equal, round, and reactive to light. Cardiovascular: Rate and Rhythm: Normal rate and regular rhythm. Pulses: Normal pulses. Heart sounds: Normal heart sounds. Pulmonary: Effort: Pulmonary effort is normal. Breath sounds: Normal breath sounds. Abdominal: General: Bowel sounds are normal. Palpations: Abdomen is soft. Tenderness: There is no abdominal tenderness. Musculoskeletal: General: Normal range of motion. Right elbow: Tenderness present. Cervical back: Normal range of motion and neck supple. Right lower leg: No edema. Left lower leg: No edema. Skin: General: Skin is warm and dry. Capillary Refill: Capillary refill takes less than 2 seconds. Findings: No rash. Neurological: General: No focal deficit present. Mental Status: She is alert and oriented to person, place, and time. Physical Exam Assessment & Plan Encounter for wellness examination Orders: Lipid panel; Future Comprehensive metabolic panel; Future Bilateral screening mammogram with tomosynthesis; Future Wellness performed at today. Height, weight, BMI, problem list, and immunizations records reviewed. Dental care discussed with patient. Encouraged annual vision screenings and semi-annual dental care. Encouraged healthy eating habits, limit or eliminate junk food and sources of excess calories. Encouraged regular periods of exercise, 150 minutes of exercise weekly or amount appropriate to current level of function. Discussed family/friend/social support and importance of maintaining emotional connections. Follow up annually and as needed. Primary hypertension Orders: Lipid panel; Future Comprehensive metabolic panel; Future Discussed current management plan. Goal BP less then 130/80. Discussed heart healthy diet, increase fruits and vegetables, limit salt intake. Encouraged increase physical exercise, try to be as active as possible at least 150 mins per week. Importance of weight management with a goal BMI less then 27 discussed. Discussed complications of uncontrolled blood pressure. Patient instructed to monitor BP's 1-2 times a week, keep a log, and bring to next visit. Barriers to care and medication compliance discussed. Patient voices understanding of meds. Hypercholesteremia Orders: Lipid panel; Future -on a statin Assessment & Plan 1. Elbow pain. - The elbow pain could be indicative of arthritis or tendinitis. - Physical exam pinpointed pain in the joint; no repetitive activities reported. - Discussion included the effectiveness of glucosamine and previous use of prednisone for knee pain. - A course of prednisone has been prescribed; advised against concurrent use of Motrin, Aleve, or naproxen while on this medication. 2. Sebaceous cyst. - The patient reported a lump on her back, identified as a sebaceous cyst. - Physical exam confirmed the presence of the cyst. - Discussed the option of surgical removal to prevent recurrence. - A referral to general surgery for the removal of the sebaceous cyst has been made. 3. Health maintenance. - She is due for a cholesterol panel check today. - Her Cologuard test was negative, and she is advised to repeat it every 3 years. - The influenza vaccine is recommended for the fall. - A mammogram has been ordered for her upcoming appointment in 05/2025. 4. Weight management. - She has lost another 5 pounds and is down to 11 pounds in a year. - No adverse effects reported from Contrave. - Discussed the importance of gradual weight loss to prevent rebound weight gain. - She will continue with Contrave. documented in this encounter [facility] 03-30-2025 Telephone encount er Note ordered [facility] 03-30-2025 Miscellaneous Notes Formattin g of this note might be different from the original. ordered Okay to order? Order cologuard documented in this encounter [facility] 03-30-2025 Telephone encount er Note Okay to order? [facility] 03-30-2025 Telephone encount er Note Order cologuard [facility] 11-06-2024 History of Presen t illness Narrative Images from the original note were not included. Kinsey PortilloRichard Burton is a 49 y.o. female presents with chief complaint of discuss medication HPI: HPI History of Present Illness The patient presents for weight management, fatigue, and hypertension. She has been on Contrave for approximately 5 months, initially experiencing a weight loss of 5 pounds. However, she perceives a plateau in her weight loss progress despite maintaining a healthy diet and regular exercise regimen, which includes weightlifting. She expresses concern about potential underlying health issues, given her family history of diabetes in her grandmother. 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 She monitors her blood pressure at home and continues her lisinopril medication. She reports regular menstrual cycles, although they are brief, lasting less than a day. She underwent an ablation procedure following the of her son, who is now 21 years old. She experiences fatigue, often retiring to bed by 8:30 PM. FAMILY HISTORY Her grandmother was diabetic. MEDICATIONS Current: Lisinopril, Contrave SUBJECTIVE: MEDICATIONS: Current Outpatient Medications Medication Instructions atorvastatin (LIPITOR) 10 mg, Oral, Every morning lisinopril 5 mg, Oral, Every morning naltrexone-buPROPion ER (Contrave) 8-90 MG ER tablet 2 tablets, Oral, 2 times daily REVIEW OF SYMPTOMS: Review of Systems OBJECTIVE: Visit Vitals BP 120/78 (BP Location: Left arm, Patient Position: Sitting, BP Cuff Size: Large adult) Pulse 83 Temp 99.5 F (Tympanic) Ht 5' 5.5 Wt 170 lb 12.8 oz SpO2 98% BMI 27.99 kg/m Smoking Status Never BSA 1.89 m Physical Exam Vitals reviewed. Constitutional: Appearance: Normal appearance. HENT: Head: Normocephalic and atraumatic. Nose: Nose normal. Mouth/Throat: Mouth: Mucous membranes are moist. Eyes: Pupils: Pupils are equal, round, and reactive to light. Cardiovascular: Rate and Rhythm: Normal rate and regular rhythm. Pulses: Normal pulses. Heart sounds: Normal heart sounds. Pulmonary: Effort: Pulmonary effort is normal. Breath sounds: Normal breath sounds. Musculoskeletal: Cervical back: Normal range of motion and neck supple. Right lower leg: No edema. Left lower leg: No edema. Skin: General: Skin is warm and dry. Capillary Refill: Capillary refill takes less than 2 seconds. Findings: No rash. Neurological: General: No focal deficit present. Mental Status: She is alert and oriented to person, place, and time. ASSESSMENT AND PLAN: Assessment/Plan Diagnoses and all orders for this visit: Fatigue, unspecified type - Vitamin B12; Future - Vitamin D 25 hydroxy; Future - TSH W/REFLEX TO FT4; Future - Ferritin; Future - Iron + transferrin + TIBC; Future -check labs to r/o any underlying cause for her fatigue. Overweight (BMI 25.0-29.9) -Has lost 6 lbs since May. Continue healthy eating habits, keep active. Primary hypertension (CMS/HCC) -Discussed current management plan. Goal BP less then 130/80. Discussed heart healthy diet, increase fruits and vegetables, limit salt intake. Encouraged increase physical exercise, try to be as active as possible at least 150 mins per week. Importance of weight management with a goal BMI less then 27 discussed. Discussed complications of uncontrolled blood pressure. Patient instructed to monitor BP's 1-2 times a week, keep a log, and bring to next visit. Barriers to care and medication compliance discussed. Patient voices understanding of meds. Due for colon cancer screening, she prefers to wait till the summer, will contact office when she is ready for referral, declines cologuard documented in this encounter [facility] 07-14-2024 History of Presen t illness Narrative Images from the original note were not included. Kinsey Burton is a 49 y.o. female presents with chief complaint of Med Refill HPI: HPI Presents to the office today for follow-up. Taking contrave 2 tablets BID, tolerating well without side effects. She is eating healthy, very active, exercises regularly. Down 4 lbs. SUBJECTIVE: MEDICATIONS: Current Outpatient Medications Medication Instructions atorvastatin (LIPITOR) 10 mg, Oral, Every morning lisinopril 5 mg, Oral, Every morning Naltrexone-buPROPion HCl (CONTRAVE PO) Take by mouth REVIEW OF SYMPTOMS: Review of Systems OBJECTIVE: Visit Vitals BP 130/80 (BP Location: Left arm, Patient Position: Sitting, BP Cuff Size: Large adult) Pulse 73 Ht 5' 5.5 Wt 172 lb 6.4 oz SpO2 96% BMI 28.25 kg/m Smoking Status Never BSA 1.9 m Physical Exam Vitals reviewed. Constitutional: Appearance: Normal appearance. HENT: Head: Normocephalic and atraumatic. Mouth/Throat: Mouth: Mucous membranes are moist. Eyes: Pupils: Pupils are equal, round, and reactive to light. Cardiovascular: Rate and Rhythm: Normal rate and regular rhythm. Pulses: Normal pulses. Heart sounds: Normal heart sounds. Pulmonary: Effort: Pulmonary effort is normal. Breath sounds: Normal breath sounds. Musculoskeletal: Cervical back: Normal range of motion and neck supple. Right lower leg: No edema. Left lower leg: No edema. Skin: General: Skin is warm and dry. Capillary Refill: Capillary refill takes less than 2 seconds. Findings: No rash. Neurological: General: No focal deficit present. Mental Status: She is alert and oriented to person, place, and time. ASSESSMENT AND PLAN: Assessment/Plan Diagnoses and all orders for this visit: Overweight (BMI 25.0-29.9) - naltrexone-buPROPion ER (Contrave) 8-90 MG ER tablet; Take 2 tablets by mouth in the morning and 2 tablets before bedtime. -Tolerating well, refills provided. Continue healthy eating habits, Keep active. Primary Hypertension -She wants to try without BP medication, instructed to check home readings, call office in a week with results. She verbalizes understanding and is in agreement with plan. Discussed current management plan. Goal BP less then 130/80. Discussed heart healthy diet, increase fruits and vegetables, limit salt intake. Encouraged increase physical exercise, try to be as active as possible at least 150 mins per week. Importance of weight management with a goal BMI less then 27 discussed. Discussed complications of uncontrolled blood pressure. Patient instructed to monitor BP's 1-2 times a week, keep a log, and bring to next visit. Barriers to care and medication compliance discussed. Patient voices understanding of meds. documented in this encounter [facility] 06-12-2024 Telephone encount er Note Kinsey called and med that was called in was denied . She's asking if the alternate med can be called in please . [facility] 06-12-2024 Miscellaneous Notes Formattin g of this note might be different from the original. Kinsey called and med that was called in was denied . She's asking if the alternate med can be called in please . [facility] documented in this encounter [facility] 06-12-2024 History of Presen t illness Narrative Images from the original note were not included. Kinsey Burton is a 49 y.o. female presents with chief complaint of Annual Exam HPI: HPI Would like medication refills sent to [facility] in [place]. Pt is out of medication. Presents to the office for annual wellness. She has concerns she would like to discuss. She feels like her body isn't her own. She did try contrave last year, didn't take it regularly. Doesn't want to buy more clothes, she feels like she is getting puffy throughout the day. Experiences bloating during the day, feels like her clothes are not fitting, drinking lots of water. Walks regularly. Doesn't eat any fast food. Going for mammogram after today's appointment, would like to think about colon cancer screening SUBJECTIVE: MEDICATIONS: Current Outpatient Medications Medication Instructions atorvastatin (LIPITOR) 10 mg, Oral, Every morning lisinopril 5 mg, Oral, Every morning REVIEW OF SYMPTOMS: Review of Systems Constitutional: Negative. HENT: Negative. Eyes: Negative. Respiratory: Negative. Cardiovascular: Negative. Gastrointestinal: Negative. Genitourinary: Negative. Musculoskeletal: Negative. Skin: Negative. Neurological: Negative. OBJECTIVE: Visit Vitals BP 124/70 (BP Location: Left arm, Patient Position: Sitting, BP Cuff Size: Large adult) Pulse 74 Ht 5' 5.5 Wt 176 lb 6.4 oz SpO2 97% BMI 28.91 kg/m Smoking Status Never BSA 1.92 m Physical Exam Vitals reviewed. HENT: Head: Normocephalic and atraumatic. Right Ear: Tympanic membrane normal. Left Ear: Tympanic membrane normal. Nose: Nose normal. Mouth/Throat: Mouth: Mucous membranes are moist. Eyes: Extraocular Movements: Extraocular movements intact. Pupils: Pupils are equal, round, and reactive to light. Cardiovascular: Rate and Rhythm: Normal rate and regular rhythm. Pulses: Normal pulses. Heart sounds: Normal heart sounds. Pulmonary: Effort: Pulmonary effort is normal. Breath sounds: Normal breath sounds. Abdominal: General: Bowel sounds are normal. Palpations: Abdomen is soft. Tenderness: There is no abdominal tenderness. Musculoskeletal: General: Normal range of motion. Cervical back: Normal range of motion and neck supple. Right lower leg: No edema. Left lower leg: No edema. Skin: General: Skin is warm and dry. Capillary Refill: Capillary refill takes less than 2 seconds. Findings: No rash. Neurological: General: No focal deficit present. Mental Status: She is alert and oriented to person, place, and time. ASSESSMENT AND PLAN: Assessment/Plan Diagnoses and all orders for this visit: Encounter for wellness examination - Comprehensive metabolic panel; Future - TSH W/REFLEX TO FT4; Future -Wellness performed at [facility] today. Height, weight, BMI, problem list, and immunizations records reviewed. Dental care discussed with patient. Encouraged annual vision screenings and semi-annual dental care. Encouraged healthy eating habits, limit or eliminate junk food and sources of excess calories. Encouraged regular periods of exercise, 150 minutes of exercise weekly or amount appropriate to current level of function. Discussed family/friend/social support and importance of maintaining emotional connections. Follow up annually and as needed. Primary hypertension (CMS/HCC) - Comprehensive metabolic panel; Future - Semaglutide-Weight Management (Wegovy) 0.25 MG/0.5ML solution auto-injector; Inject 0.25 mg under the skin 1 (one) time per week - lisinopril 5 MG tablet; Take 1 tablet (5 mg) by mouth in the morning. -Discussed current management plan. Goal BP less then 130/80. Discussed heart healthy diet, increase fruits and vegetables, limit salt intake. Encouraged increase physical exercise, try to be as active as possible at least 150 mins per week. Importance of weight management with a goal BMI less then 27 discussed. Discussed complications of uncontrolled blood pressure. Patient instructed to monitor BP's 1-2 times a week, keep a log, and bring to next visit. Barriers to care and medication compliance discussed. Patient voices understanding of meds. Overweight (BMI 25.0-29.9) - TSH W/REFLEX TO FT4; Future - Semaglutide-Weight Management (Wegovy) 0.25 MG/0.5ML solution auto-injector; Inject 0.25 mg under the skin 1 (one) time per week -Discussed medication options, medication side effects discussed, she verbalizes understanding and would like to trial wegovy. Hypercholesteremia (CMS/HCC) - atorvastatin (Lipitor) 10 MG tablet; Take 1 tablet (10 mg) by mouth in the morning. -On a statin documented in this encounter [facility] Evaluation note Diagnosis Overweight (BMI 25.0-29.9)- Primary Overweight Primary hypertension (CMS/HCC) Unspecified essential hypertension [facility] Diagnosis Encounter for wellness examination- Primary Primary hypertension (CMS/HCC) Unspecified essential hypertension Overweight (BMI 25.0-29.9) Overweight Hypercholesteremia (CMS/HCC) Pure hypercholesterolemia [facility]* Diagnosis Fatigue, unspecified type- Primary Overweight (BMI 25.0-29.9) Overweight Primary hypertension (CMS/HCC) Unspecified essential hypertension [facility]* Diagnosis Overweight (BMI 25.0-29.9) Overweight [facility]* Diagnosis Encounter for screening for malignant neoplasm of colon- Primary [facility]* Diagnosis Encounter for wellness examination- Primary Primary hypertension Unspecified essential hypertension Hypercholesteremia Pure hypercholesterolemia Anxiety Anxiety state, unspecified Screening mammogram for breast cancer Left elbow pain Pain in joint, upper arm Sebaceous cyst [facility]* Diagnosis Encounter for wellness examination- Primary Primary hypertension Unspecified essential hypertension Hypercholesteremia Pure hypercholesterolemia Anxiety Anxiety state, unspecified Screening mammogram for breast cancer Left elbow pain Pain in joint, upper arm Sebaceous cyst Hypercholesteremia Pure hypercholesterolemia Primary hypertension Unspecified essential hypertension [facility]* Diagnosis Encounter for wellness examination- Primary Primary hypertension Unspecified essential hypertension Hypercholesteremia Pure hypercholesterolemia Anxiety Anxiety state, unspecified Screening mammogram for breast cancer Left elbow pain Pain in joint, upper arm Sebaceous cyst Chronic midline low back pain without sciatica- Primary [facility]* Diagnosis Encounter for wellness examination- Primary Primary hypertension Unspecified essential hypertension Hypercholesteremia Pure hypercholesterolemia Anxiety Anxiety state, unspecified Screening mammogram for breast cancer Left elbow pain Pain in joint, upper arm Sebaceous cyst Overweight (BMI 25.0-29.9) Overweight documented in this encounter [facility] Summary Purpose Family History No Family History Records FoundNo Family History Records FoundNo Family History Records Found Advance Directives No Advanced Directives Records FoundNo Advanced Directives Records FoundNo Advanced Directives Records Found Additional Source Comments INFORMATION SOURCE (unrecogn ized section and content) DATE CREATED AUTHOR 05/23/2022 [facility] DATE CREATED AUTHOR AUTHOR'S ORGANIZ ATION 10/10/2022 [facility] DATE CREATED AUTHOR AUTHOR'S ORGANIZ ATION 06/19/2025 [facility] EPIC Reason for Visit (unrecogniz ed section and content) Reason Comments Med Refill Reason Comments Annual Exam Reason Comments discuss medication Reason Comments Annual Exam Reason Comments Back Pain Care Teams (unrecognized sec tion and content) Ell Tutor Relationship Specialty Start Date End Date Kimberly Paz MD [address] [place] [address] PCP - General 04/22/23 Ell Tutor Relationship Specialty Start Date End Date Kimberly Paz MD [address] [place] [address] PCP - General 04/22/23 Ell Tutor Relationship Specialty Start Date End Date Kimberly Paz MD [address] [place] [address] PCP - General 04/22/23 Ell Tutor Relationship Specialty Start Date End Date Kimberly Paz MD [address] [place] [address] PCP - General 04/22/23 Ell Tutor Relationship Specialty Start Date End Date Kimberly Paz MD [address] [place] [address] PCP - General 04/22/23 Ell Tutor Relationship Specialty Start Date End Date Kimberly Paz MD [address] [place] [address] PCP - General 04/22/23 Ell Tutor Relationship Specialty Start Date End Date Kimberly Paz MD [address] [place] [address] PCP - General 04/22/23 Ell Tutor Relationship Specialty Start Date End Date Kimberly Paz MD [address] [place] [address] PCP - General 04/22/23 Ell Tutor Relationship Specialty Start Date End Date Kimberly Paz MD [address] [place] [address] PCP - General 04/22/23 Ell Tutor Relationship Specialty Start Date End Date Kimberly Paz MD [address] [place] [address] PCP - General 04/22/23 Ell Tutor Relationship Specialty Start Date End Date Kimberly Paz MD [address] [place] [address] PCP - General 04/22/23 Ell Tutor Relationship Specialty Start Date End Date Kimberly Paz MD [address] [place] [address] PCP - General 04/22/23 Ell Tutor Relationship Specialty Start Date End Date Kimberly Paz MD [address] [place] [address] PCP - General 7/24/23 FOR RECORDS PERTAINING TO PATIENTS WHO ARE OR HAVE BEEN ENROLLED IN A CHEMICAL DEPENDENCY/SUBSTANCEABUSE PROGRAM, SOME INFORMATION MAY BE OMITTED. This clinical summary was aggregated from multiple sources. Caution should be exercised in using it in the provision of clinical care. This summary normalizes information from multiple sources, and as a consequence, information in this document may materially change the coding, format and clinical context of patient data. In addition, data may be omitted in some cases. CLINICAL DECISIONS SHOULD BE BASED ON THE PRIMARY CLINICAL RECORDS. [facility]. provides no warranty or guarantee of the accuracy or completeness of information in this document.
--- OUTSIDE RECORDS SUMMARY | 2025-07-16 08:00 | XMS_ITS | Patient Health Record ---
Author Organization BILLING FACILITY [facility] Address [address] [place] [address] Care Team Providers Care Vp Site Name Role Phone Anna Eli Primary Care Provider Francisco Ingram [phone] ALLERGIES Allergen (clinical drug ingredient) Drug/Non Drug Allergy documented on EMR Reaction Allergy Type Onset Date Status meperidine Demerol anaphylaxis Drug Allergy Acti ve acetaminophen / oxycodone Percocet hives Drug Allergy Active REASON FOR REFERRAL No Information MEDICATIONS Medication SIG (Take, Route, Fr equency, [...] Notes Are you a nonuser Section Notes: Hungarian/Speech/Journalism Te acher-Roverto HS PROBLEMS Problem Type ICD Code Onset Dates Problem Status W/U Status Risk SNOMED Code Notes Problem Hyperlipidemia (E78.5) Active confirmed Hyperlipidemia (37528561) Problem HTN (hypertension) (I10) Active confirmed Hypertension (26008770) VITAL SIGNS Heart Rate 82 /min 07/31/2024 Oximetry 98 % 07/31/2024 Blood pressure diastolic 76 mm Hg 07/31/2024 Weight-kg 78.02 kg 07/31/2024 Height 66 in 07/31/2024 Blood pressure systolic 112 mm Hg 07/31/2024 Weight 172 lbs 07/31/2024 BMI 27.76 07/31/2024 Encounters Encounter Location Date Provider Diagnosis [facility] [address] [place] [address] 07/31/2024 Francisco Ingram Acute non-recurrent maxillary sinusitis J01.00 ASSESSMENTS Encounter Date Diagnosis Assessment Notes Treatment Notes Treatment Clinical Notes Section Notes 07/31/2024 Acute non-recurrent maxillary sinusitis (ICD-10 - J01.00) Counseled on sxs care, expected course. She will hold amoxicillin, prednisone and start them only if she is not getting better or is getting worse over the WE 07/31/2024 Other Discussed services at [facility]. She is considering x-ferring care here and will call to schedule wellness if she wishes to do so. PLAN OF TREATMENT No Information Insurance Providers Payer Name Payer Address Payer Phone Subscriber Number Group Number Insured Name Patient Relationship to Insured Coverage Start Date Coverage End Date [facility] [employer] [address] [place] [address] [id number] Kinsey Love Self - patient is the insured MEDICAL (GENERAL) HISTORY Medical History History ICD Code HTN (hypertension) I10 Hyperlipidemia E78.5 Surgical History Surgery Date(Month/Year) Ablation 2003 Hospitalization History Reason Date(Month/Year) Childbirth
--- OUTSIDE RECORDS SUMMARY | 2025-07-16 08:00 | XMS_ITS | Encounter Summary ---
Author Organization [facility] Healthcare Address [address] [facility] [place] [address] Care Team Providers Care Multiple Tube Winding Machine Operator Name Role Phone Kimberly Holm MD Primary Care Provider [phone] Encounter Details Date Type Department Care Team (Latest Contact Info) Description 05/04/2025 Results Follow-Up [facility] Medicine [address] [place] [address] Seema Goel NP [address] [place], [place] [id number] Lipid panel, Comprehensive metabolic panel Social History Tobacco Use Types Packs/Day Years Used Date Smoking Tobacco: Never Smokeless Tobacco: Never Alcohol Use Standard Drinks/Week Comments Yes 0 (1 standard drink = 0.6 oz pure alcohol) Caffeine intake : 1-2 cups/day coffee B1300 Health Literacy Answer Date Recor ded How often do you need to hav e someone help you when you read instructions, pamphlets, or other written material from your doctor or pharmacy? Never 05/02/2025 Humiliation, Afraid, Rape, and Kick questionnair e Answer Date Recorded Within the last year, have y ou been afraid of your partner or ex-partner? No 05/02/2025 Within the last year, have y ou been humiliated or emotionally abused in other ways by your partner or ex-partner? No Within the last year, have y ou been kicked, hit, slapped, or otherwise physically hurt by your partner or ex-partner? No 05/02/2025 Within the last year, have y ou been raped or forced to have any kind of sexual activity by your partner or ex-partner? No 05/02/2025 Social Connection and Isolation Panel Answer Date Recorded In a typical week, how many times do you talk on the phone with family, friends, or neighbors? More than three times a week 05/02/2025 How often do you get togethe r with friends or relatives? Three times a week 05/02/2025 How often do you attend [facility] or faith services? Never 05/02/2025 Do you belong to any clubs o r organizations such as mormonism groups, unions, fraternal or athletic groups, or school groups? No 05/02/2025 How often do you attend meet ings of the clubs or organizations you belong to? Never 05/02/2025 Are you , , di vorced, , never , or living with a partner? 05/02/2025 AUDIT-C Answer Date Recorded Q1: How often do you have a drink containing alc ohol? 2-4 times a month 05/02/2025 Q2: How many drinks containi ng alcohol do you have on a typical day when you are drinking? 1 or 2 05/02/2025 Q3: How often do you have si x or more drinks on one occasion? Never 05/02/2025 Overall Financial Resource Strain (CARDIA) Answe r Date Recorded How hard is it for you to pa y for the very basics like food, housing, medical care, and heating? Not hard at all 05/02/2025 PHQ-2 Answer Date Recorded Patient Health Questionnaire-2 Score 0 05/03/2025 [facility] - Occupational Stress Questionnaire Answer Date Recorded Do you feel stress - tense, restless, nervous, or anxious, or unable to sleep at night because your mind is troubled all the time - these days? To some extent 05/02/2025 Exercise Vital Sign Answer Date Recorde d On average, how many days pe r week do you engage in moderate to strenuous exercise (like a brisk walk)? 3 days 05/02/2025 On average, how many minutes do you engage in exercise at this level? 50 min 05/02/2025 Hunger Vital Sign Answer Date Recorded Within the past 12 months, y ou worried that your food would run out before you got the money to buy more. Never true 05/02/20 25 Within the past 12 months, t he food you bought just didn't last and you didn't have money to get more. Never true 05/02/2025 PRAPARE - Transportation Answer Date Re corded In the past 12 months, has l ack of transportation kept you from medical appointments or from getting medications? No 11/2024 In the past 12 months, has l ack of transportation kept you from meetings, work, or from getting things needed for daily living? No 05/02/2025 Housing Stability Vital Sign Answer Иван e Recorded In the last 12 months, was t here a time when you were not able to pay the mortgage or rent on time? No 08/28/2023 In the last 12 months, how many places have you lived? 1 08/28/2023 In the last 12 months, was t here a time when you did not have a steady place to sleep or slept in a residential (including now)? No 08/28/2023 Housing Stability Vital Sign Answer Иван e Recorded In the last 12 months, was t here a time when you were not able to pay the mortgage or rent on time? No 05/02/2025 Number of Times Moved in the Last Year Not on fi le 05/02/2025 At any time in the past 12 m [facility], were you homeless or living in a residential (including now)? No 05/02/2025 Comments Unknown Sex and Gender Information Value Date Recorded Sex Assigned at Not on file Legal Sex Female 6:44 PM EDT Gender Identity Female 12/12/2022 6:44 PM EDT Sexual Orientation Not on file documented as of this encounter Plan of Treatment Not on file documented as of this encounter Visit Diagnoses Not on filedocumented in this encounter Care Teams Multiple Tube Winding Machine Operator Relationship Specialty Start Date End Date Kimberly Holm MD [address] [place] [address] PCP - General 04/22/23 documented as of this encounter
--- OUTSIDE RECORDS SUMMARY | 2025-07-16 08:00 | XMS_ITS | Clinical Summary ---
Author Organization [facility] Healthcare Address [address] [place] [address] Care Team Providers Care Diver'S Tender Name Role Phone Kimberly Paz MD Primary Care Provider [phone] Allergies Active Allergy Reactions Criticality Noted Date Comments Meperidine Hcl 04/22/2023 Other Reaction(s): Unknown Oxycodone-Acetaminophen 04/22/2023 Medications atorvastatin (Lipitor) 10 MG tabletIndication s:Hypercholester emia Take 1 tablet (10 mg) by mouth in the morning. 90 tablet 1 06/17/20 25 Active lisinopril 5 MG tabletIndication s:Primary hypertension Take 1 tablet (5 mg) by mouth in the morning. 90 tablet 1 06/17/20 25 Active Contrave 8-90 MG ER tabletIndication s:Overweight (BMI 25.0-29.9) Take 2 tablets by mouth in the morning and take 2 before bedtime 120 tablet 1 06/28/20 25 Active atorvastatin (Lipitor) 10 MG tabletIndication s:Hypercholester emia TAKE 1 TABLET BY MOUTH IN THE MORNING 90 tablet 1 12/21/19 25 025 Discontinued(Re order) lisinopril 5 MG tabletIndication s:Primary hypertension TAKE 1 TABLET BY MOUTH IN THE MORNING 90 tablet 1 12/21/19 25 025 Discontinued(Re order) Contrave 8-90 MG ER tabletIndication s:Overweight (BMI 25.0-29.9) Take 2 tablets by mouth in the morning and take 2 before bedtime 120 tablet 05/03/20 25 025 Discontinued predniSONE (Deltasone) 20 MG tabletIndication s:Chronic midline low back pain without sciatica Take 1 tablet (20 mg) by mouth in the morning and 1 tablet (20 mg) before bedtime. Do all this for 5 days. 10 tablet 06/18/20 25 025 Active Problems Problem Noted Date Diagnosed Date Hypertension 11/06/2024 Assessment & Plan (05/03/2025 2:49 PM EDT): Orders: Lipid panel; Future Comprehensive metabolic panel; [...] compliance discussed. Patient voices understanding of meds. Anxiety 05/09/2023 Bilateral sacroiliitis 05/09/2023 Fatigue 05/09/2023 Hypercholesteremia 05/09/2023 Assessment & Plan (05/03/2025 2:49 PM EDT): Orders: Lipid panel; Future -on a statin Weight gain 05/09/2023 Resolved Problems Problem Noted Date Diagnosed Date Resolved Date Abnormal mammogram 05/09/2023 Acute depression 05/09/2023 05/14/2023 Adjustment reaction with anx iety and depression 05/09/2023 05/14/2023 Perioral dermatitis 05/09/2023 06/12/20 24 Rosacea 05/09/2023 06/12/2024 Encounters Date Type Department Care Team Description 06/28/[address] [facility] [address] [facility] [place] [address] Seema Goel NP Overweight (BMI 25.0-29.9) 06/18/2025 8:00 AM EDT Office Visit [facility] [address] [facility] [place] [address] Leslie Mendez NP Chronic midline low back pain without sciatica (Primary Dx) 06/18/2025 Bamboo flowsheet [facility] [address] [place] [address] Leslie Mendez NP 06/18/2025 Travel 06/17/2025 Refill [id number] [place] [phone] Donya Vargas MA Hypercholesteremia ; Primary hypertension 06/15/2025 Telephone [id number] [place] [phone] Kimberly Paz MD 05/04/2025 Results Follow-Up [id number] [place] [address] Seema Goel NP Lipid panel, Comprehensive metabolic panel 05/03/2025 11:00 AM EDT Office Visit [id number] [place] [phone] Seema Goel NP Encounter for wellness examination (Primary Dx); Primary hypertension ; Hypercholesteremia ; Anxiety; Screening mammogram for breast cancer; Left elbow pain; Sebaceous cyst 05/03/2025 Refill [address] [place] [phone] Seema Goel NP Overweight (BMI 25.0-29.9) 05/03/2025 Bamboo flowsheet [facility] [address] [place] [phone] Seema Goel NP 05/03/2025 Travel 05/02/2025 Travel 04/22/2025 Results Follow-Up [address] [place] [phone] [facility] from Last 3 Months Immunizations Immunization Administration Dates Next Due Influenza, live, intranasal 08/09/2010 Tdap 02/02/2013 Family History Medical History Relation Name Comments Hypertension Mother Depression Other Hyperlipidemia Other Hypertension Other Relation Name Status Comments Father Alive Mother Alive Other Social History Tobacco Use Types Packs/Day Years Used Date Smoking Tobacco: Never Smokeless Tobacco: Never Tobacco Cessation:Counseling Given: Not Answered Alcohol Use Standard Drinks/Week Comments Yes 0 [...] week 05/02/2025 How often do you attend chur or scientology services? Never 05/02/2025 Do you belong to any clubs o r organizations such as jehovah's witness groups, unions, fraternal or athletic groups, or [...] Recorded Patient Health Questionnaire-2 Score 0 05/03/2025 [facility] - Occupational Stress [...] place to sleep or slept in a jail (including now)? No 08/28/2023 Housing Stability Vital Sign Answer Иван e Recorded In the last 12 months, was t here a time when you were not able to pay the mortgage or rent on time? No 05/02/2025 Number of Times Moved in the Last Year Not on fi le 05/02/2025 At any time in the past 12 m [facility] were you homeless or living in a jail (including now)? No 05/02/2025 Comments Unknown Sex and Gender Information Value Date Recorded Sex Assigned at Not on file Legal Sex Female 6:44 PM EDT Gender Identity Female 12/12/2022 6:44 PM EDT Sexual Orientation Not on file Last Filed Vital Signs Vital Sign Reading Time Taken Comments Blood Pressure 138/90 06/18/2025 8:14 AM EDT Pulse 66 06/18/2025 8:14 AM EDT Temperature 36.4 C (97.5 F) 06/18/2025 8:14 AM EDT Respiratory Rate - - Oxygen Saturation 98% 06/18/2025 8:14 AM EDT Inhaled Oxygen Concentration - - Weight 77.1 kg (170 lb) 06/18/2025 8:14 AM EDT Height 166.4 cm (5' 5.5 ) 11/06/2024 1:59 PM EST Body Mass Index 27.86 11/06/2024 1:59 PM EST Plan of Treatment Health Maintenance Due Date Last Done Comments CT Colonography 1975 Colonoscopy 1975 FIT 1975 FOBT 1975 Sigmoidoscopy 1975 Pap Smear 1996 Mammogram 06/12/2025 06/12/2024, 05/09/2023, 04/03/2021 Cervical Cancer Screening 01/17/2026 HPV/Cotest 01/17/2026 01/17/2021 Influenza Vaccine (#1) 2026 08/09/2010 Postp oned from 05/31/2025 (Patient Refused) Colorectal Cancer Screening 04/14/2028 FIT-DNA 04/14/2028 04/14/2025 Procedures Procedure Name Priority Date/Time Associated Diagnosis Comments COMPREHENSIVE METABOLIC PANEL Routine 05/03/2025 11:42 AM EDT Encounter for wellness examination Primary hypertension LIPID PANEL Routine 05/03/2025 11:42 AM EDT Encounter for wellness examination Primary hypertension Hypercholesteremia LAB COLOGUARD COLON CANCER SCREEN Routine 04/14/2025 9:50 AM EDT Encounter for screening for malignant neoplasm of colon BI MAMMOGRAM SCREENING BILATERAL 06/12/2024 12:26 PM EDT from Last 3 Months or Most Recently Relevant to Health Maintenance Results * (ABNORMAL) Lipid panel (05/03/2025 11:42 AM EDT) CHOLESTEROL, TOTAL 198 <200 mg/dL [facility] HDL CHOLESTEROL 78 > OR = 50 mg/dL [facility] TRIGLYCERIDES 71 <150 mg/dL [facility] LDL CHOLESTEROL 104(H) mg/dL (calc) [facility] Comment: Reference range: <100 Desirable range <100 mg/dL for primary prevention; <70 mg/dL for patients with CHD or diabetic patients with > or = 2 CHD risk factors. LDL-C is now calculated using the Ángel-Alan calculation, which is a validated novel method providing better accuracy than the Friedewald equation in the estimation of LDL-C. Ángel SS et al. GUICHO. 2013;310(19): 2854-1302 (http://education.Link_A_ Media/faq/ZWQ673) CHOL/HDLC RATIO 2.5 <5.0 (calc) [facility] NON HDL CHOLESTEROL 120 <130 mg/dL (calc) [facility] Comment: For patients with diabetes plus 1 major ASCVD risk factor, treating to a non-HDL-C goal of <100 mg/dL (LDL-C of <70 mg/dL) is considered a therapeutic option. Blood Venous blood specimen / Unknown 05/03/2025 11:42 AM EDT 05/03/2025 11:42 AM EDT Narrative Resulting Agency Comment Performing Organization Information Site ID: QPT Name: [facility] Address: [address] [place] [address], [address] [place] [phone] Director: Stevie Melchor MD us Seema Goel NP LAB BLOOD ORDERABLES Final Resu lt [facility] * (ABNORMAL) Comprehensive metabolic panel (05/03/2025 11:42 AM EDT) Glucose 101(H) 65 - 99 mg/dL [facility] Comment: Fasting reference interval For someone without known diabetes, a glucose value between 100 and 125 mg/dL is consistent with prediabetes and should be confirmed with a follow-up test. BUN 13 7 - 25 mg/dL [facility] Creatinine 0.98 0.50 - 1.03 mg/dL [facility] EGFR 70 > OR = 60 mL/min/1. 73m2 [facility] BUN/CREATININE RATIO SEE NOTE: 6 - 22 (calc) [facility] Comment: Not Reported: BUN and Creatinine are within reference range. Sodium 138 135 - 146 mmol/L [facility] Potassium, Bld 4.4 3.5 - 5.3 mmol/L [facility] Chloride 101 98 - 110 mmol/L [facility] Carbon Dioxide 29 20 - 32 mmol/L [facility] Calcium 9.5 8.6 - 10.4 mg/dL [facility] PROTEIN, TOTAL 6.9 6.1 - 8.1 g/dL [facility] ALBUMIN 4.7 3.6 - 5.1 g/dL [facility] GLOBULIN 2.2 1.9 - 3.7 g/dL (calc) [facility] ALBUMIN/GLOBULIN RATIO 2.1 1.0 - 2.5 (calc) [facility] BILIRUBIN, TOTAL 0.6 0.2 - 1.2 mg/dL [facility] ALKALINE PHOSPHATASE 44 37 - 153 U/L [facility] AST 17 10 - 35 U/L [facility] ALT 17 6 - 29 U/L [facility] Blood Venous blood specimen / Unknown 05/03/2025 11:42 AM EDT 05/03/2025 11:42 AM EDT Narrative Resulting Agency Comment Performing Organization Information Site ID: QPT Name: [facility] Address: [address] [place] [address], [address] [place] [phone] Director: Stevie Melchor MD us Seema Goel NP LAB BLOOD ORDERABLES Final Resu lt [facility] * Cologuard?? colon cancer screening (04/14/2025 9:50 AM EDT) NONINV COLON CA DNA+OCC BLD SCRN STL-IMP Negative Negative 04/21/2025 12:17 PM EDT [facility] (CLIA #:[id number]) Comment: The Cologuard (TM) test was performed on this specimen. NEGATIVE TEST RESULT. A negative Cologuard result indicates a low likelihood that a colorectal cancer (CRC) or advanced adenoma (adenomatous polyps with more advanced pre-malignant features) is present. The chance that a person with a negative Cologuard test has a colorectal cancer is less than 1 in 1500 (negative predictive value >99.9%) or has an advanced adenoma is less than 5.3% (negative predictive value 94.7%). These data are based on a prospective cross-sectional study of 10,000 individuals at average risk for colorectal cancer who were screened with both Cologuard and colonoscopy. (Porter Kay al, N Engl J Med 2014;370(14):1286- 1297) The normal value (reference range) for this assay is negative. COLOGUARD RE-SCREENING RECOMMENDATION: Periodic colorectal cancer screening is an important part of preventive healthcare for asymptomatic individuals at average risk for colorectal cancer. Following a negative Cologuard result, the [place] Cancer Society and U.S. Multi-Society Task Force screening guidelines recommend a Cologuard re-screening interval of 3 years. References: [place] Cancer Society Guideline for Colorectal Cancer Screening: https://www.cancer.org/cancer/biguu-kzgkpe-nfdguc/euajyciur-vybprxsqt-bzikgty/ac s-rec ommendations.html.; Bhavin DK, Gary CR, Delvis RizoK, Colorectal Cancer Screening: Recommendations for Physicians and Patients from the U.S. Multi-Society Task Force on Colorectal Cancer Screening , Am J Gastroenterology 2017; 112:5569-1837. TEST DESCRIPTION: Composite algorithmic analysis of stool DNA-biomarkers with hemoglobin immunoassay. Quantitative values of individual biomarkers are not reportable and are not associated with individual biomarker result reference ranges. Cologuard is intended for colorectal cancer screening of adults of either sex, 45 years or older, who are at average-risk for colorectal cancer (CRC). Cologuard has been approved for use by the U.S. FDA. The performance of Cologuard was established in a cross sectional study of average-risk adults aged 50-84. Cologuard performance in patients ages 45 to 49 years was estimated by sub-group analysis of near-age groups. Colonoscopies performed for a positive result may find as the most clinically significant lesion: colorectal cancer [4.0%], advanced adenoma (including sessile serrated polyps greater than or equal to 1cm diameter) [20%] or non- advanced adenoma [31%]; or no colorectal neoplasia [45%]. These estimates are derived from a prospective cross-sectional screening study of 10,000 individuals at average risk for colorectal cancer who were screened with both Cologuard and colonoscopy. (Porter Kay al, N Engl J Med 2014;370(14):0368-6231.) Cologuard may produce a false negative or false positive result (no colorectal cancer or precancerous polyp present at colonoscopy follow up). A negative Cologuard test result does not guarantee the absence of CRC or advanced adenoma (pre-cancer). The current Cologuard screening interval is every 3 years. ([place] Cancer Society and U.S. Multi-Society Task Force). Cologuard performance data in a 10,000 patient pivotal study using colonoscopy as the reference method can be accessed at the following location: www.ClearCycle.CommonFloor/results. Additional description of the Cologuard test process, warnings and precautions can be found at www.cologuard.com. Stool specimen (specimen) 04/14/2025 9:50 AM EDT 04/15/2025 12:45 PM EDT Casandra Person DIRECTOR OF LEARNING LAB MOLECULAR DIAGNOSTI CS ORDERABLES Final Result [facility] (CLIA #:[id number]) [address] [address], [employer] (CLIA #:[id number]) [address] [address] * Bilateral screening mammogram (06/12/2024 12:26 PM EDT) Anatomical Region Laterality Modality Breast Bilateral Mammography 06/12/2024 12:2 6 PM EDT Narrative 06/12/2024 12:27 [place] [address] Mammography Report Signed Patient: KINSEY PORTILLO MR#: [id number] : 1975 Acct:[id number] Age/Sex: 49 / F ADM Date: 06/12/24 Loc: MAMMO Attending Dr: KIMBERLY PAZ Ordering Physician: KIMBERLY PAZ Results: Date of Service: 06/12/24 Follow Up: Procedure(s): MM screening mammo BI Accession Number(s): [id number] cc: KIMBERLY PAZ Patient Name: KINSEY PORTILLO MR#: [id number] : 1975 Exam Date: 06/12/2024 Ordering Doctor: DR KIMBERLY PAZ M.D. RADIOLOGY REPORT PROCEDURE: MM SCREENING MAMMO BI COMPARISON: MM TOMOSYNTHESIS SCREENING BI, 05/09/2023. INDICATIONS: BILATERAL SCREENING MAMM Calculator Name NCI Breast Cancer Risk Assessment Tool 5 Year Breast Cancer Risk 0.90% Lifetime Breast Cancer Risk 9.20% Personal Breast Cancer No Personal Ovarian Cancer No Treatments None Family Cancers Grandmother-paternal with breast cancer at age 63. LOCATION: [facility] BREAST COMPOSITION: The breasts are heterogeneously dense,which may obscure small masses. FINDINGS: DIAGNOSTIC CATEGORY 2--BENIGN FINDING. NO CHANGE FROM COMPARISON. Scattered benign-appearing nodules are present. Scattered benign-appearing calcifications are present. Scattered benign-appearing lymph nodes are present. RIGHT BREAST: No significant suspicious finding. LEFT BREAST: No significant suspicious finding. RECOMMENDATIONS: ROUTINE MAMMOGRAM AND CLINICAL EVALUATION IN 12 MONTHS. PLEASE NOTE: A NORMAL MAMMOGRAM DOES NOT EXCLUDE THE POSSIBILITY OF BREAST CANCER. A CLINICALLY SUSPICIOUS PALPABLE LUMP SHOULD BE BIOPSIED. Dictated by: Francisco Flanagan MD on 06/12/2024 at 12:25 Approved by: Francisco Flanagan MD on 06/12/2024 at 12:26 Dictated By: Francisco Flanagan M.D. Signed By: 06/12/24 1227 DD/ 1226 TD/TT: Dragger: Procedure Note Radiology, Radiologist, - 06/12/2024 [place] [address] Mammography Report Signed Patient: KNISEY PORTILLO AMR#: [id number] : 1975Acct:[id number] Age/Sex: 49 / FADM Date: 06/12/24 Loc: MAMMO Attending Dr: KIMBERLY PAZ Ordering Physician: KIMBERLY PAZResults: Date of Service: 06/12/24Follow Up: Procedure(s): MM screening mammo BI Accession Number(s): [id number] cc: KIMBERLY PAZ Patient Name: KINSEY PORTILLO MR#: [id number] : 1975 Exam Date: 06/12/2024 Ordering Doctor: DR KIMBERLY PAZ M.D. RADIOLOGY REPORT PROCEDURE: MM SCREENING MAMMO BI COMPARISON: MM TOMOSYNTHESIS SCREENING BI, 05/09/2023. INDICATIONS: BILATERAL SCREENING MAMM Calculator Name NCI Breast Cancer Risk Assessment Tool 5 Year Breast Cancer Risk 0.90% Lifetime Breast Cancer Risk 9.20% Personal Breast Cancer No Personal Ovarian Cancer No Treatments None Family Cancers Grandmother-paternal with breast cancer at age 63. LOCATION: [facility] BREAST COMPOSITION: The breasts are heterogeneously dense,which may obscure small masses. FINDINGS: DIAGNOSTIC CATEGORY 2--BENIGN FINDING. NO CHANGE FROM COMPARISON. Scattered benign-appearing nodules are present. Scatteredbenign-appearing calcifications are present. Scattered benign-appearing lymph nodes are present. RIGHT BREAST: No significant suspicious finding. LEFT BREAST: No significant suspicious finding. RECOMMENDATIONS: ROUTINE MAMMOGRAM AND CLINICAL EVALUATION IN 12 MONTHS. PLEASE NOTE: A NORMAL MAMMOGRAM DOES NOT EXCLUDE THE POSSIBILITY OFBREAST CANCER. A CLINICALLY SUSPICIOUS PALPABLE LUMP SHOULD BE BIOPSIED. Dictated by: Francisco Flanagan MD on 06/12/2024 at 12:25 Approved by: Francisco Flanagan MD on 06/12/2024 at 12:26 Dictated By: Francisco Flanagan M.D. Signed By:06/12/24 1227 DD/ 1226 TD/TT: Dragger: Kimberly Paz MD IMG BI PROCEDURES Final Resul t from Last 3 Months or Most Recently Relevant to Health Maintenance Insurance [employer] Care Teams Diver'S Tender Relationship Specialty Start Date End Date Kimberly Paz MD [address] [place] [address] PCP - General 04/22/23
--- OUTSIDE RECORDS SUMMARY | 2025-07-16 08:01 | XMS_ITS | Encounter Summary ---
Author Organization [facility] Healthcare Address [address] [place] [address] Care Team Providers Care Corporate Receptionist Name Role Phone Kimberly Holm MD Primary Care Provider [phone] Reason for Visit * Reason Comments Med Refill Encounter Details Date Type Department Care Team (Late st Contact Info) Description 12/24/2024 Refill [facility] Family Medicine [address] [place] [address] Seema Goel NP [address] [place], [place] [phone] Overweight (BMI 25.0-29.9) Social History Tobacco Use Types Packs/Day Years Used Date Smoking Tobacco: Never Smokeless Tobacco: Never Alcohol Use Standard Drinks/Week Comments Yes 0 (1 standard drink = 0.6 oz pure alcohol) Caffeine intake : 1-2 cups/day coffee Humiliation, Afraid, Rape, and Kick questionnair e Answer Date Recorded Within the last year, have y ou been afraid of your partner or ex-partner? No 08/28/2023 Within the last year, have y ou been humiliated or emotionally abused in other ways by your partner or ex-partner? No Within the last year, have y ou been kicked, hit, slapped, or otherwise physically hurt by your partner or ex-partner? No 08/28/2023 Within the last year, have y ou been raped or forced to have any kind of sexual activity by your partner or ex-partner? No 08/28/2023 Social Connection and Isolation Panel Answer Date Recorded In a typical week, how many times do you talk on the phone with family, friends, or neighbors? More than three times a week 08/28/2023 How often do you get togethe r with friends or relatives? More than three times a week 08/28/2023 How often do you attend chur ch or presybeterian services? More than 4 times per year 08/28/2023 Do you belong to any clubs o r organizations such as mormonism groups, unions, fraternal or athletic groups, or school groups? Yes 08/28/2023 How often do you attend meet ings of the clubs or organizations you belong to? More than 4 times per year 08/28/2023 Are you , , di vorced, , never , or living with a partner? Living with partner 08/28/2023 AUDIT-C Answer Date Recorded Q1: How often do you have a drink containing alc ohol? 2-3 times a week 06/12/2024 Q2: How many drinks containi ng alcohol do you have on a typical day when you are drinking? 1 or 2 06/12/2024 Q3: How often do you have si x or more drinks on one occasion? Never 06/12/2024 Overall Financial Resource Strain (CARDIA) Answe r Date Recorded How hard is it for you to pa y for the very basics like food, housing, medical care, and heating? Not hard at all 08/28/2023 PHQ-2 Answer Date Recorded Patient Health Questionnaire-2 Score 0 02/25/2024 [facility] - Occupational Stress Questionnaire Answer Date Recorded Do you feel stress - tense, restless, nervous, or anxious, or unable to sleep at night because your mind is troubled all the time - these days? Only a little 08/28/2023 Exercise Vital Sign Answer Date Recorde d On average, how many days pe r week do you engage in moderate to strenuous exercise (like a brisk walk)? 0 days 08/28/2023 On average, how many minutes do you engage in exercise at this level? 0 min 08/28/2023 Hunger Vital Sign Answer Date Recorded Within the past 12 months, y ou worried that your food would run out before you got the money to buy more. Never true 08/28/20 23 Within the past 12 months, t he food you bought just didn't last and you didn't have money to get more. Never true 08/28/2023 PRAPARE - Transportation Answer Date Re corded In the past 12 months, has l ack of transportation kept you from medical appointments or from getting medications? No 08/01 In the past 12 months, has l ack of transportation kept you from meetings, work, or from getting things needed for daily living? No 08/28/2023 Housing Stability Vital Sign Answer [...] in a jail (including now)? No 08/28/2023 Comments Unknown Sex and Gender Information Value Date Recorded Sex Assigned at Not on file Legal Sex Female 6:44 PM EDT Gender Identity Female 12/12/2022 6:44 PM EDT Sexual Orientation Not on file documented as of this encounter Plan of Treatment Not on file documented as of this encounter Visit Diagnoses Diagnosis Overweight (BMI 25.0-29.9) Overweight documented in this encounter Care Teams Corporate Receptionist Relationship Specialty Start Date End Date Kimberly Holm MD [address] [place] [address] PCP - General 04/22/23 documented as of this encounter
--- OUTSIDE RECORDS SUMMARY | 2025-07-16 08:01 | XMS_ITS | Encounter Summary ---
Author Organization [facility] Address [address] [facility] [place] [address] Care Team Providers Care Anti Tank Missileman Name Role Phone Kimberly Holm MD Primary Care Provider [phone] Encounter Details Date Type Department Care Team (Late st Contact Info) Description 05/09/2023 Abstract [facility] [place] [facility] [address] [place] [phone] Kimberly Holm MD [address] [place], [place] [phone] Social History Tobacco Use Types Packs/Day Years Used Date Smoking Tobacco: Never Alcohol Use Standard Drinks/Week Comments Never 0 (1 standard drink = 0.6 oz pur e alcohol) caffeine: 1-2 cups/day coffee Comments Unknown Sex and Gender Information Value Date Recorded Sex Assigned at Not on file Legal Sex Female 6:44 PM EDT Gender Identity Female 12/12/2022 6:44 PM EDT Sexual Orientation Not on file COVID-19 Exposure Response Date Recorded In the last 10 days, have yo u been in contact with someone who was confirmed or suspected to have Coronavirus/COVID-19? No / Unsure 04/22/2023 8:25 AM EDT documented as of this encounter Plan of Treatment Not on file documented as of this encounter Visit Diagnoses Not on filedocumented in this encounter Care Teams Anti Tank Missileman Relationship Specialty Start Date End Date Kimberly Holm MD [address] [place] [address] PCP - General 04/22/23 documented as of this encounter
--- OUTSIDE RECORDS SUMMARY | 2025-07-16 08:01 | XMS_ITS | Encounter Summary ---
Author Organization [facility] Address [address] [place] [address] Care Team Providers Care Winding Inspector And Tester Name Role Phone Kimberly Holm MD Primary Care Provider [phone] Encounter Details Date Type Department Care Team (Late st Contact Info) Description 05/10/2023 Orders Only [facility] Medicine [address] [facility] [place] [address] Kimberly Holm MD [address] [place], [place] [id number] Social History Tobacco Use Types Packs/Day Years Used Date Smoking Tobacco: Never Alcohol Use Standard Drinks/Week Comments Never 0 (1 standard drink = 0.6 oz pur e alcohol) caffeine: 1-2 cups/day coffee AUDIT-C Answer Date Recorded Q1: How often do you have a drink containing alc ohol? Monthly or less 05/14/2023 Q2: How many drinks containi ng alcohol do you have on a typical day when you are drinking? 1 or 2 05/14/2023 Q3: How often do you have si x or more drinks on one occasion? Never 05/14/2023 Comments Unknown Sex and Gender Information Value [...] on file documented as of this encounter Procedures Procedure Name Priority Date/Time Associated Diagnosis Comments MAMM SCREEN CAD BILAT10.00 %28 Routine 05/09/2023 12:21 PM EDT documented in this encounter Results * MAMM SCREEN CAD BILAT10.00 %28 (05/09/2023 12:21 PM EDT) Anatomical Region Laterality Modality Radiographic Azeb ging us Kimberly Holm MD IMG XR PROCEDURES Edited Resu lt - Final documented in this encounter Visit Diagnoses Not on filedocumented in this encounter Care Teams Winding Inspector And Tester Relationship Specialty Start Date End Date Kimberly Holm MD [address] [place] [address] PCP - General 04/22/23 documented as of this encounter
--- OUTSIDE RECORDS SUMMARY | 2025-07-16 08:01 | XMS_ITS | Encounter Summary ---
Author Organization [facility] Address [address] [facility] [facility] [place] [address] Care Team Providers Care Tax Accountant Name Role Phone Kimberly Holm MD Primary Care Provider [phone] Encounter Details Date Type Department Care Team (Late st Contact Info) Description 05/10/2023 Abstract [facility] Medicine [address] [place] [id number] Kimberly Holm MD [address] [place], [place] [id number] Social History Tobacco Use Types Packs/Day Years [...] on filedocumented in this encounter Care Teams Tax Accountant Relationship Specialty Start Date End Date Kimberly Holm MD [address] [place] [address] PCP - General 04/22/23 documented as of this encounter
--- OUTSIDE RECORDS SUMMARY | 2025-07-16 08:01 | XMS_ITS | Encounter Summary ---
Author Organization [facility] Address [address] [place] [address] Care Team Providers Care Instructor Adjunct Pharmacy Technician Name Role Phone Priscila Paz MD Primary Care Provider [phone] Encounter Details Date Type Department Care Team (Late st Contact Info) Description 06/12/2024 [facility] Result Encounter [facility] Department Unsolicited Priscila Paz MD [address] [place] [address] Social History Tobacco Use Types Packs/Day Years [...] 08/28/2023 How often do you attend chur or jewish services? More than 4 times per year 08/28/2023 Do you belong to any clubs o r organizations such as hindu groups, unions, fraternal or athletic groups, or [...] Recorded Patient Health Questionnaire-2 Score 0 02/25/2024 [facility] - Occupational Stress Questionnaire Answer Date Recorded [...] place to sleep or slept in a detention (including now)? No 08/28/2023 Comments Unknown Sex and Gender Information Value Date Recorded Sex Assigned at Not on file Legal Sex Female 6:44 PM EDT Gender Identity Female 12/12/2022 6:44 PM EDT Sexual Orientation Not on file documented as of this encounter Functional Status * AUDIT-C Score Answer Date of Assessment Author 3 06/12/2024 8:36 AM Kamini Casillas MA * Question Answer Date of Assessment Author Q1: How often do you have a drink containing alcohol? 2-3 times a week 06/12/2024 8:36 AM Cristina Casillas MA Q2: How many drinks containing alcohol do you have on a typical day when you are drinking? 1 or 2 06/12/2024 8:36 AM Milagro Casillas MA Q3: How often do you have six or more drinks on one occasion? Never 06/12/2024 8:36 AM Cristina Casillas MA documented as of this encounter Plan of Treatment Not on file documented as of this encounter Procedures Procedure Name Priority Date/Time Associated Diagnosis Comments BI MAMMOGRAM SCREENING BILATERAL 06/12/2024 12:26 PM EDT documented in this encounter Results * Bilateral screening mammogram (06/12/2024 12:26 PM EDT) Anatomical Region Laterality Modality Breast Bilateral Mammography 06/12/2024 12:2 6 PM EDT Narrative 06/12/2024 12:27 [place] [address] Mammography Report Signed Patient: KINSEY PORTILLO MR#: [id number] : 1975 Acct:[id number] Age/Sex: 49 / F ADM Date: 06/12/24 Loc: MAMMO Attending Dr: PRISCILA PAZ Ordering Physician: PRISCILA PAZ Results: Date of Service: 06/12/24 Follow Up: Procedure(s): MM screening mammo BI Accession Number(s): [id number] cc: PRISCILA PAZ Patient Name: KINSEY PORTILLO MR#: [id number] : 1975 Exam Date: 06/12/2024 Ordering Doctor: DR PRISCILA PAZ M.D. RADIOLOGY REPORT PROCEDURE: MM SCREENING MAMMO BI COMPARISON: MM TOMOSYNTHESIS SCREENING BI, 05/09/2023. INDICATIONS: BILATERAL SCREENING MAMM Calculator Name NCI Breast Cancer Risk Assessment Tool 5 Year Breast Cancer Risk 0.90% Lifetime Breast Cancer Risk 9.20% Personal Breast Cancer No Personal Ovarian Cancer No Treatments None Family Cancers Grandmother-paternal with breast cancer at age 63. LOCATION: The [facility] BREAST COMPOSITION: The breasts are heterogeneously dense,which [...] Signed By: 06/12/24 1227 DD/ 1226 TD/TT: Director Data Processing: Procedure Note Radiology, Radiologist, - 06/12/2024 [place] [address] Mammography Report Signed Patient: KINSEY PORTILLO [facility]#: [id number] : 1975Acct:[id number] Age/Sex: 49 / FADM Date: 06/12/24 Loc: MAMMO Attending Dr: PRISCILA PAZ Ordering Physician: PRISCILA PAZResults: Date of Service: 06/12/24Follow Up: Procedure(s): MM screening mammo BI Accession Number(s): [id number] cc: PRISCILA PAZ Patient Name: KINSEY PORTILLO MR#: [id number] : 1975 Exam Date: 06/12/2024 Ordering Doctor: DR PRISCILA PAZ M.D. RADIOLOGY REPORT PROCEDURE: MM SCREENING MAMMO BI COMPARISON: MM TOMOSYNTHESIS SCREENING BI, 05/09/2023. INDICATIONS: BILATERAL SCREENING MAMM Calculator Name NCI Breast Cancer Risk Assessment Tool 5 Year Breast Cancer Risk 0.90% Lifetime Breast Cancer Risk 9.20% Personal Breast Cancer No Personal Ovarian Cancer No Treatments None Family Cancers Grandmother-paternal with breast cancer at age 63. LOCATION: The [facility] BREAST COMPOSITION: The breasts are heterogeneously dense,which [...] M.D. Signed By:06/12/24 1227 DD/ 1226 TD/TT: Director Data Processing: Priscila Paz MD IMG BI PROCEDURES Final Resul t documented in this encounter Visit Diagnoses Not on filedocumented in this encounter Care Teams Instructor Adjunct Pharmacy Technician Relationship Specialty Start Date End Date Priscila Paz MD [address] [place] [address] PCP - General 04/22/23 documented as of this encounter
--- NOTE | 2025-07-16 08:22 | MM_ITS ---
Patient Name: JAIME MEDINA MR#: [id number] : 1975 Exam Date: 07/16/2025 Ordering Doctor: DR PRISCILA PAZ M.D. RADIOLOGY REPORT PROCEDURE: MM TOMOSYNTHESIS SCREENING BI COMPARISON: MM SCREENING MAMMO BI, 06/12/2024. MM TOMOSYNTHESIS SCREENING BI, 05/09/2023. MG MAMM SCREEN LUIS W CAD, 03/30/2016. INDICATIONS: Screening Calculator Name NCI Breast Cancer Risk Assessment Tool 5 Year Breast Cancer Risk 1.00% Lifetime Breast Cancer Risk 9.10% Personal Breast Cancer No Personal Ovarian Cancer No Treatments None Family Cancers Grandmother-paternal with breast cancer at age ~63. LOCATION: The [facility] BREAST COMPOSITION: The breasts are heterogeneously dense, which may obscure small masses. FINDINGS: RIGHT BREAST: No significant suspicious finding. Is a similar focal asymmetry appeared LEFT BREAST: No significant suspicious finding. Similar focal asymmetries are present paired DIAGNOSTIC CATEGORY 2--BENIGN FINDING. NO CHANGE FROM COMPARISON. RECOMMENDATIONS: ROUTINE MAMMOGRAM AND CLINICAL EVALUATION IN 12 MONTHS. Dictated by: Romeo Richardson MD on 07/16/2025 at 12:17 Approved by: Romeo Richardson MD on 07/16/2025 at 12:20
== END 2025-07-16 07:58 | disposition home or self-care (01) ==
LOC: MAMMO 07:57
PROVIDERS: PCP Family Medicine; Visit Provider Family Medicine
DX: Z12.31 Encounter for screening mammogram for malignant neoplasm of breast (principal); Z80.3 Family history of malignant neoplasm of breast
CPT/HCPCS: 77063; 77067